=== PATIENT | male | born 1940 | race Caucasian/White ===

== ENCOUNTER → 2017-04-16 | Outpatient (CLI) | payer MEDICARE ==
[~2017-04-16] MED LIST: REGADENOSON 0.4 MG/5 ML SYRINGE IV ONE
--- NOTE | 2017-04-16 11:43 | NM ---
EXAMINATION TYPE: NM stress lexiscan cardiolite DATE OF EXAM: 04/16/2017 COMPARISON: NONE HISTORY: Precordial chest pain and abnormal EKG TECHNIQUE: After the intravenous administration of 10.6 mCi Tc 99m Sestamibi - Cardiolite resting SP ECT images acquired 45 minutes post injection. The patient received 0.4mg Lexiscan, 28.1 mCi Tc 99m Sestamibi - Stress images obtained [address] injection FINDINGS: Review of stress and rest SPECT images demonstrates decreased perfusion involving the inferior wall a nd cardiac apex at both rest and stress with slight improvement at the stress. No definite evidence for stress-induced ischemia. Estimated ejection fraction is 52%. No wall motion abnormalities detecte d. IMPRESSION: No scintigraphic evidence for reversible ischemia.
--- NOTE | 2017-04-17 14:13 | EST ---
TYPE OF REPORT: LEXISCAN STRESS TEST INDICATIONS: The test is being done to evaluate cardiac status. The patient has history of hypertension, diabetes and hypercholesterolemia. BASELINE HEART RATE: 54 BASELINE BLOOD PRESSURE: 129/70 MAXIMUM HEART RATE: 57 MAXIMUM BLOOD PRSSURE: 205/43 85% MPHR 100% MPHR Baseline EKG showed sinus rhythm with evidence of intraventricular conduction delay which appears to be nonspecific. Blood pressure at rest is 129/70 with pulse rate of 50. A standard dose of Lexiscan was infused. EKGs taken during and after infusion did not reveal any changes from the baseline. FINAL IMPRESSION: 1. Nondiagnostic Lexiscan stress test because of baseline and EKG abnormalities. 2. Report on nuclear images to be dictated by Radiologist. MEEKD
== END | disposition home or self-care (01) ==
LOC: RADNMMAIN 09:08
PROVIDERS: ATTEND Internal Medicine
DX: I45.5 Other specified heart block (principal)
CPT/HCPCS: 93017; 78452; A9500; J2785

== ENCOUNTER 2017-06-26 22:56 | Inpatient (IN) | payer MEDICARE ==
[2017-06-26 23:36] LABS: Anisocytosis Slight; Basophils % (A) 1 %; CH 32.3; CHCM 30.8; Eosinophils # (A) 0.3 k/uL (0-0.7); Eosinophils % (A) 6 %; HCT 26.4 % (39.0-53.0); HDW 3.13; Hypochromasia Moderate; Luc # (Auto) 0.12; Luc % (Auto) 3; Lymphocytes # (A) 0.3 k/uL (1.0-4.8); Lymphocytes % (A) 5 %; MCH 32.1 pg (25.0-35.0); MCHC 30.3 g/dL (31.0-37.0); Macrocytosis Moderate; Mean Platelet Volume 10.1; Monocytes # (A) 0.3 k/uL (0-1.0); Monocytes % (A) 7 %; Neutrophils # (A) 3.8 k/uL (1.3-7.7); Neutrophils % (A) 80 %; RBC 2.49 m/uL (4.30-5.90); RDW 17.2 % (11.5-15.5); WBC 4.8 k/uL (3.8-10.6); WBC (Perox) 4.92
[2017-06-26 23:46] LABS: Calcium 7.5 mg/dL (8.4-10.2); Potassium 4.4 mmol/L (3.5-5.1); Total Bilirubin 0.2 mg/dL (0.2-1.3)
[2017-06-26 23:49] LABS: INR 1.2 (<1.2); Partial Thromboplastin Time 26.5 sec (22.0-30.0); Prothrombin Time 12.1 sec (9.0-12.0)
--- NOTE | 2017-06-27 00:04 | XR ---
EXAMINATION TYPE: XR foot complete LT DATE OF EXAM: 06/26/2017 COMPARISON: NONE HISTORY: Open wound TECHNIQUE: 3 views FINDINGS: There is significant soft tissue swelling in the forefoot. There are plantar and Achilles c alcaneal spurs. There is vascular calcification. I see no focal bone destruction. IMPRESSION: Tissue swelling. No specific sign of osteomyelitis.
--- NOTE | 2017-06-27 00:13 | XR ---
EXAMINATION TYPE: XR knee complete LT DATE OF EXAM: 06/26/2017 COMPARISON: NONE HISTORY: Weakness and pain TECHNIQUE: 3 views FINDINGS: There is severe narrowing of the medial joint space. There is spurring of femoral and tibia l condyles. I see no fracture. There is spurring on the patella. IMPRESSION: Advanced osteoarthritis. No fracture seen.
--- NOTE | 2017-06-27 00:14 | XR ---
EXAMINATION TYPE: XR chest 1V DATE OF EXAM: 06/26/2017 COMPARISON: 07/26/2015 HISTORY: Weakness. TECHNIQUE: Single frontal view of the chest is obtained. FINDINGS: Heart is enlarged. There is mild pulmonary vascular congestion. There is no pleural effusi on. IMPRESSION: Cardiomegaly and mild congestion. Pulmonary vascularity is increased compared to last ex am and this could be mild heart failure.
[2017-06-27] MEDS ORDERED: NITROGLYCERIN OINT 1 INCH/GM PACKET TOPICAL STA (00:23)
[2017-06-27] MEDS ORDERED: VANCOMYCIN IV PER PHARMACY 1 EACH MISC MISCELLANE PRN (00:23)
[2017-06-27] MEDS ORDERED: FUROSEMIDE 10 MG/ML 4 ML VIAL IV STA (00:23)
[2017-06-27] MEDS ORDERED: ACETAMINOPHEN TAB 325 MG TAB PO PRN (00:27)
[2017-06-27] MEDS ORDERED: ONDANSETRON 4 MG/2 ML VIAL IVP PRN (00:27)
[2017-06-27] MEDS ORDERED: NALOXONE 0.4 MG/ML 1 ML VIAL IV PRN (00:27)
--- NOTE | 2017-06-27 00:27 | ED ---
Extremity Problem HPI - General Chief complaint: Extremity Problem,Nontraumatic Stated complaint: weakness Time Seen by Provider: 06/26/17 23:05 Source: patient, RN notes reviewed Mode of arrival: EMS Limitations: no limitations - History of Present Illness Initial comments: 76-year-old male presents emergency department via EMS chief complaint fall. Patient states the more frequent falls recently. Patient states that he also has a wound on his left heel which has been new over the last week or so. Family states they have been wrapping it but states been progressing and they noticed some surrounding redness. Patient is a diabetic. Patient has known renal disease and states that he has not had dialysis for over one year he does admit to worsening kidney function states she's been resistant of dialysis. Patient states his primary care physician has advised him that he needs dialysis again. Patient denies fever, chills. Patient states that his left knee gave out on him tonight causing him to fall. He complains of mild left knee pain. He does have some bruising on his back and right shoulder which is from a previous fall. Patient states that is not more short of breath than usual though he appears to be short of breath at this time. Patient does have [place] at home but he has not been wearing this. - Related Data Home Medications Medication Instructions Recorded Confirmed Calcium Acetate [PhosLo] 222 mg PO DAILY 06/24/14 06/10/17 Colchicine [Colcrys] 0.6 mg PO DAILY PRN 06/24/14 06/10/17 DULoxetine HCL [Cymbalta] 30 mg PO DAILY 06/24/14 06/10/17 HYDROcodone/APAP 7.5-325MG [[place] 7.5 mg PO BID 06/24/14 06/10/17 7.5-325] Labetalol [Trandate] 200 mg PO BID 06/24/14 06/10/17 Levothyroxine Sodium [Synthroid] 0.25 mcg PO DAILY 06/24/14 06/10/17 Allopurinol [Zyloprim] 100 mg PO BID 11/22/14 06/10/17 Atorvastatin [Lipitor] 40 mg PO HS 07/30/15 06/10/17 Bumetanide [BUMEX] 2 mg PO BID 07/30/15 06/10/17 Pramipexole [Mirapex] 0.25 mg PO DAILY 07/30/15 06/10/17 Ergocalciferol [Vitamin D2] 50,000 unit PO Q7D 12/30/15 06/10/17 Aspirin [Aspirin EC] 500 mg PO DAILY PRN 04/29/17 06/10/17 Calcium Acetate [Phoslo] 667 mg PO TID 04/29/17 06/10/17 Ascorbic Acid [Vitamin C] 500 mg PO DAILY 05/13/17 06/10/17 Zinc 50 mg PO DAILY 05/13/17 06/10/17 Previous Rx's Medication Instructions Recorded amLODIPine [Norvasc] 10 mg PO DAILY #30 tab 06/28/14 Allergies Allergy/AdvReac Type Severity Reaction Status Date / Time ciprofloxacin [From Cipro] Allergy Rash/Hives Verified 06/24/17 13:07 ciprofloxacin HCl Allergy Rash/Hives Verified 06/24/17 13:07 [From Cipro] Penicillins Allergy Unknown Verified 06/24/17 13:07 sulfamethoxazole Allergy Rash/Hives Verified 06/24/17 13:07 [From Bactrim] trimethoprim [From Bactrim] Allergy Rash/Hives Verified 06/24/17 13:07 Review of Systems ROS Statement: Those systems with pertinent positive or pertinent negative responses have been documented in the HPI. ROS Other: All systems not noted in ROS Statement are negative. Past Medical History Past Medical History: COPD, Diabetes Mellitus, Dialysis, Hyperlipidemia, Hypertension, Osteoarthritis (OA), Renal Disease, Sleep Apnea/CPAP/BIPAP, Thyroid Disorder Additional Past Medical History / Comment(s): end-stage renal disease, morbid obesity with BMI of 47 , gout , prior history of diabetic [facility] Nye, hypertension, hypertensivecardio vascular disease, hypothyroidism, diabetes mellitus type 2, COPD, hyperlipidemia, BPH, osteoarthritis. History of Any Multi-Drug Resistant Organisms: None Reported Past Surgical History: Heart Catheterization, Hernia Repair, Joint Replacement Additional Past Surgical History / Comment(s): Dialysis fistula and right forearm, eye surgery, umbilical and hiatal hernia repair, right ankle repair, CAPD catheter placement , EGD and colonoscopy, multiple foot surgeries. Past Anesthesia/Blood Transfusion Reactions: No Reported Reaction Past Psychological History: No Psychological Hx Reported Smoking Status: Never smoker - Past Family History Mother Family Medical History: CVA/TIA Father Family Medical History: Congestive Heart Failure (CHF) Brother(s) Family Medical History: No Reported History General Exam Limitations: no limitations General appearance: alert, in no apparent distress, obese Head exam: Present: atraumatic, normocephalic, normal inspection Neck exam: Present: normal inspection. Absent: tenderness, meningismus, lymphadenopathy Respiratory exam: Present: rales. Absent: normal lung sounds bilaterally, respiratory distress, wheezes, rhonchi, stridor Cardiovascular Exam: Present: regular rate, normal rhythm, normal heart sounds. Absent: systolic murmur, diastolic murmur, rubs, gallop, clicks Extremities exam: Present: other (Edematous legs noted with faint pedal pulses equal bilaterally, left knee pain with range of motion no tenderness to posterior medial lateral but there is mild tenderness to the anterior surface. Left heel there is an area of sloughing of the skin with moderate surrounding erythema and small area of deep tissue noted there is a sore noted to the right foot on the third digit along with some deformities of the digits noted) Back exam: Present: full ROM, tenderness (Mild tenderness low back). Absent: normal inspection (Ecchymosis noted the right shoulder region, upper back region ) Neurological exam: Present: alert, oriented X3, CN II-XII intact, reflexes normal. Absent: motor sensory deficit Course Vital Signs 06/26/17 22:58 Temperature 100.0 F H Pulse Rate 73 Respiratory 20 Rate Blood Pressure 133/60 O2 Sat by Pulse 91 L Oximetry Medical Decision Making - Lab Data Result diagrams: 06/26/17 23:07 06/26/17 23:07 Lab Results 06/26/17 06/26/17 06/26/17 Range/Units 23:07 23:07 23:07 WBC 4.8 (3.8-10.6) k/uL RBC 2.49 L (4.30-5.90) m/uL Hgb 8.0 L (13.0-17.5) gm/dL Hct 26.4 L (39.0-53.0) % MCV 106.0 H (80.0-100.0) fL MCH 32.1 (25.0-35.0) pg MCHC 30.3 L (31.0-37.0) g/dL RDW 17.2 H (11.5-15.5) % Plt Count 142 L (150-450) k/uL Neutrophils % 80 % Lymphocytes % 5 % Monocytes % 7 % Eosinophils % 6 % Basophils % 1 % Neutrophils # 3.8 (1.3-7.7) k/uL Lymphocytes # 0.3 L (1.0-4.8) k/uL Monocytes # 0.3 (0-1.0) k/uL Eosinophils # 0.3 (0-0.7) k/uL Basophils # 0.0 (0-0.2) k/uL Hypochromasia Moderate Anisocytosis Slight Macrocytosis Moderate PT (9.0-12.0) sec INR (<1.2) APTT (22.0-30.0) sec Sodium 141 (137-145) mmol/L Potassium 4.4 (3.5-5.1) mmol/L Chloride 112 H (98-107) mmol/L Carbon Dioxide 11 L (22-30) mmol/L Anion Gap 18 mmol/L BUN 103 H* (9-20) mg/dL Creatinine 6.70 H* (0.66-1.25) mg/dL Est GFR (MDRD) Af Amer 10 (>60 ml/min/1.73 sqM) Est GFR (MDRD) Non-Af 8 (>60 ml/min/1.73 sqM) Glucose 167 H (74-99) mg/dL Plasma Lactic Acid Levi 1.3 (0.7-2.0) mmol/L Calcium 7.5 L (8.4-10.2) mg/dL Total Bilirubin 0.2 (0.2-1.3) mg/dL AST 18 (17-59) U/L ALT 36 (21-72) U/L Alkaline Phosphatase 88 (38-126) U/L NT-Pro-B Natriuret Pep pg/mL Total Protein 6.0 L (6.3-8.2) g/dL Albumin 3.3 L (3.5-5.0) g/dL 06/26/17 06/26/17 Range/Units 23:07 23:07 WBC (3.8-10.6) k/uL RBC (4.30-5.90) m/uL Hgb (13.0-17.5) gm/dL Hct (39.0-53.0) % MCV (80.0-100.0) fL MCH (25.0-35.0) pg MCHC (31.0-37.0) g/dL RDW (11.5-15.5) % Plt Count (150-450) k/uL Neutrophils % % Lymphocytes % % Monocytes % % Eosinophils % % Basophils % % Neutrophils # (1.3-7.7) k/uL Lymphocytes # (1.0-4.8) k/uL Monocytes # (0-1.0) k/uL Eosinophils # (0-0.7) k/uL Basophils # (0-0.2) k/uL Hypochromasia Anisocytosis Macrocytosis PT 12.1 H (9.0-12.0) sec INR 1.2 H (<1.2) APTT 26.5 (22.0-30.0) sec Sodium (137-145) mmol/L Potassium (3.5-5.1) mmol/L Chloride (98-107) mmol/L Carbon Dioxide (22-30) mmol/L Anion Gap mmol/L BUN (9-20) mg/dL Creatinine (0.66-1.25) mg/dL Est GFR (MDRD) Af Amer (>60 ml/min/1.73 sqM) Est GFR (MDRD) Non-Af (>60 ml/min/1.73 sqM) Glucose (74-99) mg/dL Plasma Lactic Acid Levi (0.7-2.0) mmol/L Calcium (8.4-10.2) mg/dL Total Bilirubin (0.2-1.3) mg/dL AST (17-59) U/L ALT (21-72) U/L Alkaline Phosphatase (38-126) U/L NT-Pro-B Natriuret Pep 53187 pg/mL Total Protein (6.3-8.2) g/dL Albumin (3.5-5.0) g/dL Disposition Clinical Impression: Acute exacerbation of CHF (congestive heart failure), Diabetic foot ulcer, Chronic renal failure Disposition: ADMITTED IP TO THIS [facility] Condition: Fair Referrals: Anup Chirinos MD [Primary Care Provider] - 1-2 days
[2017-06-27] MEDS ORDERED: VANCOMYCIN 2,250 MG in SODIUM CHLORIDE 0.9% 500 ML IVPB STA (00:28)
[2017-06-27 06:13] LABS: Glucose,Whole Blood 170 mg/dL (75-99)
[2017-06-27] MEDS: INSULIN LISPRO (humaLOG) 300 UNIT/3 ML VIAL SQ SCH ×4 (06:27→21:05)
[2017-06-27] MEDS ORDERED: LEVOTHYROXINE 112 MCG TAB PO SCH (09:00)
[2017-06-27] MEDS ORDERED: N PO SCH (09:00)
[2017-06-27] MEDS: ALLOPURINOL 100 MG TAB PO SCH ×2 (10:55→20:41)
[2017-06-27] MEDS: amLODIPine 10 MG TAB PO SCH (10:55)
[2017-06-27] MEDS: LABETALOL 200 MG TAB PO SCH ×2 (10:56→20:41)
[2017-06-27] MEDS: ASCORBIC ACID 500 MG TAB PO SCH (10:56)
[2017-06-27] MEDS: DULoxetine HCL 30 MG CAPSULE.DR PO SCH (10:56)
[2017-06-27] MEDS: PRAMIPEXOLE 0.25 MG TAB PO SCH (10:57)
[2017-06-27] MEDS: HYDROcodone/APAP 7.5-325MG 1 EACH TAB PO SCH ×2 (11:09→20:41)
[2017-06-27] MEDS: FUROSEMIDE 10 MG/ML 10 ML VIAL IV SCH ×3 (11:45→23:30)
[2017-06-27 11:48] LABS: Glucose,Whole Blood 205 mg/dL (75-99)
--- NOTE | 2017-06-27 11:51 | P.NPCON ---
History of Present Illness - Reason for Consult Consult date: 06/27/17 chronic renal failure, end stage renal disease - Chief Complaint Falls and worsening shortness of breath - History of Present Illness Mr. Handley is a 76-year-old white gentleman coming to the hospital with recurrent falls and worsening shortness of breath. He follows with Dr. Devi in the CKD clinic. He has C daily for secondary to diabetic nephropathy was on dialysis, initially [facility] for a year and then [facility] for 3 years. He was taken off dialysis since September 2014 and since then doing pretty good without dialysis. Creatinine history, 2.73 MG per DL in October 2014, 2.93 in December 2014. Creatinine of 4.55 in December 2016. Lab work from March 2017 serum creatinine of 5.74 MG per DL. Currently is CKD 5. He was offered dialysis but he declined. He comes into the hospital and creatinine today 6.7 MG per DL with albumin of 108. His bicarb is 11. Potassium is within normal limits he does make good amount of urine. He takes Bumex 3 mg twice a day. He has mild uremic symptoms with decreased appetite, some taste changes. No overt confusion. No recent contrast studies. In the ER he was given Lasix his breathing improved. Still short of breath while talking but able to lie flat. Review of Systems Denies any chest pain shortness of breath palpitations No joint pains calf tenderness No dizziness lightheadedness No dysuria or hematuria Past Medical History Past Medical History: COPD, Diabetes Mellitus, Dialysis, Hyperlipidemia, Hypertension, Osteoarthritis (OA), Renal Disease, Sleep Apnea/CPAP/BIPAP, Thyroid Disorder Additional Past Medical History / Comment(s): end-stage renal disease, morbid obesity with BMI of 47 , gout , prior history of diabetic [facility] under [facility] Nye, hypertension, hypertensivecardio vascular disease, hypothyroidism, diabetes mellitus type 2, COPD, hyperlipidemia, BPH, osteoarthritis. History of Any Multi-Drug Resistant Organisms: None Reported Past Surgical History: Heart Catheterization, Hernia Repair, Joint Replacement Additional Past Surgical History / Comment(s): Dialysis fistula and right forearm x 3, eye surgery, umbilical and hiatal hernia repair, right ankle repair , CAPD catheter placement , EGD and colonoscopy, multiple foot surgeries. Past Anesthesia/Blood Transfusion Reactions: No Reported Reaction Past Psychological History: No Psychological Hx Reported Smoking Status: Never smoker Past Alcohol Use History: None Reported Additional Past Alcohol Use History / Comment(s): patient is a lifelong nonsmoker. He denies any marijuana, medical marijuana street drug use. Patient lives at home with his . He is a retired teacher. Past Drug Use History: None Reported - Past Family History Mother Family Medical History: CVA/TIA Father Family Medical History: Congestive Heart Failure (CHF) Brother(s) Family Medical History: No Reported History Medications and Allergies Home Medications Medication Instructions Recorded Confirmed Type Colchicine [Colcrys] 0.6 mg PO DAILY PRN 06/24/14 06/27/17 History DULoxetine HCL [Cymbalta] 30 mg PO DAILY 06/24/14 06/27/17 History Labetalol [Trandate] 400 mg PO BID 06/24/14 06/27/17 History amLODIPine [Norvasc] 10 mg PO DAILY #30 tab 06/28/14 06/27/17 Rx Allopurinol [Zyloprim] 100 mg PO BID 11/22/14 06/27/17 History Atorvastatin [Lipitor] 40 mg PO HS 07/30/15 06/27/17 History Bumetanide [BUMEX] 4 mg PO BID 07/30/15 06/27/17 History Pramipexole [Mirapex] 0.25 mg PO DAILY 07/30/15 06/27/17 History Ergocalciferol [Vitamin D2] 50,000 unit PO MO 12/30/15 06/27/17 History Aspirin [Aspirin EC] 500 mg PO DAILY PRN 04/29/17 06/27/17 History Ascorbic Acid [Vitamin C] 500 mg PO DAILY 05/13/17 06/27/17 History Levothyroxine Sodium [Synthroid] 50 mcg PO DAILY 06/27/17 06/27/17 History Levothyroxine Sodium [Synthroid] 200 mcg PO DAILY 06/27/17 06/27/17 History Allergies Allergy/AdvReac Type Severity Reaction Status Date / Time ciprofloxacin [From Cipro] Allergy Rash/Hives Verified 06/27/17 10:22 ciprofloxacin HCl Allergy Rash/Hives Verified 06/27/17 10:22 [From Cipro] Penicillins Allergy Rash/Hives Verified 06/27/17 10:22 sulfamethoxazole Allergy Rash/Hives Verified 06/27/17 10:22 [From Bactrim] trimethoprim [From Bactrim] Allergy Rash/Hives Verified 06/27/17 10:22 Physical Exam Vitals: Vital Signs Temp Pulse Pulse Resp BP BP Pulse Ox 06/27/17 03:11 97.6 F 70 20 129/61 94 L 06/27/17 01:10 EDT 98.3 F 06/27/17 00:41 76 22 150/65 97 06/26/17 22:58 100.0 F H 73 20 133/60 91 L Intake and Output 06/26/17 06/27/17 06/27/17 23:59 06:59 14:59 Intake Total 600 Balance 600 Intake: IV Vancomycin 2,250 mg In Sodium Chloride 0.9% 500 ml @ 167 mls/hr IVPB ONCE STA Rx#:[id number] Amount of Fluid Infused ( ml) Oral 600 Other: Voiding Method Weight Lying in bed no acute distress S1-S2 heard Decreased breath sounds in the bases Bilateral lower extremity edema Right forearm fistula aVF which is functional. Results Impression: #1 CKD 5 secondary to diabetic nephropathy. With mild uremic symptoms and volume overload. #2 hypervolemia with worsening shortness of breath secondary to fluid retention. #3 metabolic acidosis secondary to #1. #4 anemia with CKD #5 history of congestive heart failure. Recommendations: #1 start Lasix 80 mg IV 3 times a day for volume-controlled. #2 plan hemodialysis for tomorrow via right upper arm aVF, 2 hours treatment. #3 add by mouth sodium bicarbonate for metabolic acidosis. #4 check serum phosphorus and PTH and iron profile with a.m. labs. Very much for this consultation will follow along while he is in the hospital. - Lab Results Most recent lab results Calcium 7.5 mg/dL (8.4-10.2) L 06/26/17 23:07 06/26/17 23:07 06/26/17 23:07
--- NOTE | 2017-06-27 12:25 | P.CRDCN ---
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 The patient stated that he was in his usual state of health until about a week ago when he started experiencing frequent falls. He fell 5 times within a week. Did not lose his consciousness. Did not have any symptoms of dizziness or lightheadedness and around episodes, heart racing or fluttering, or any chest pain or chest discomfort. At the same time he started noticing progressive exertional dyspnea without orthopnea and without PND. Also he noticed severe bilateral lower extremities edema. The patient stated that he was compliant with all of his medications as well as with his diet. Does not recall having any recent history of upper respiratory infection or pneumonia or so. Clinically the patient does not look in any respiratory distress. He is morbidly obese. He does have severe bilateral lower extremities pitting edema associated with chronic skin changes and he does have bilateral crackles on physical examination. The chest x-ray showed cardiomegaly associated with congestive heart failure. The BNP came in to be severe lead alleviated. The hemoglobin came in to be around 8. The creatinine is 6 and a GFR is less than 10. The patient was seen and evaluated by the nephrology service who started the patient on IV Lasix and scheduled the patient to undergo hemodialysis beginning tomorrow. Past Medical History Past Medical History: COPD, Diabetes Mellitus, Dialysis, Hyperlipidemia, Hypertension, Osteoarthritis (OA), Renal Disease, Sleep Apnea/CPAP/BIPAP, Thyroid Disorder Additional Past Medical History / Comment(s): end-stage renal disease, morbid obesity with BMI of 47 , gout , prior history of diabetic wound ulcers [facility] under Dr. Nye, hypertension, hypertensivecardio vascular disease, hypothyroidism, diabetes mellitus type 2, COPD, hyperlipidemia, BPH, osteoarthritis. History of Any Multi-Drug Resistant Organisms: None Reported Past Surgical History: Heart Catheterization, Hernia Repair, Joint Replacement Additional Past Surgical History / Comment(s): Dialysis fistula and right forearm x 3, eye surgery, umbilical and hiatal hernia repair, right ankle repair , CAPD catheter placement , EGD and colonoscopy, multiple foot surgeries. Past Anesthesia/Blood Transfusion Reactions: No Reported Reaction Past Psychological History: No Psychological Hx Reported Smoking Status: Never smoker Past Alcohol Use History: None Reported Additional Past Alcohol Use History / Comment(s): patient is a lifelong nonsmoker. He denies any marijuana, medical marijuana street drug use. Patient lives at home with his . He is a retired teacher. Past Drug Use History: None Reported - Past Family History Mother Family Medical History: CVA/TIA Father Family Medical History: Congestive Heart Failure (CHF) Brother(s) Family Medical History: No Reported History Medications and Allergies Home Medications Medication Instructions Recorded Confirmed Type Colchicine [Colcrys] 0.6 mg PO DAILY PRN 06/24/14 06/27/17 History DULoxetine HCL [Cymbalta] 30 mg PO DAILY 06/24/14 06/27/17 History Labetalol [Trandate] 400 mg PO BID 06/24/14 06/27/17 History amLODIPine [Norvasc] 10 mg PO DAILY #30 tab 06/28/14 06/27/17 Rx Allopurinol [Zyloprim] 100 mg PO BID 11/22/14 06/27/17 History Atorvastatin [Lipitor] 40 mg PO HS 07/30/15 06/27/17 History Bumetanide [BUMEX] 4 mg PO BID 07/30/15 06/27/17 History Pramipexole [Mirapex] 0.25 mg PO DAILY 07/30/15 06/27/17 History Ergocalciferol [Vitamin D2] 50,000 unit PO MO 12/30/15 06/27/17 History Aspirin [Aspirin EC] 500 mg PO DAILY PRN 04/29/17 06/27/17 History Ascorbic Acid [Vitamin C] 500 mg PO DAILY 05/13/17 06/27/17 History Levothyroxine Sodium [Synthroid] 50 mcg PO DAILY 06/27/17 06/27/17 History Levothyroxine Sodium [Synthroid] 200 mcg PO DAILY 06/27/17 06/27/17 History Allergies Allergy/AdvReac Type Severity Reaction Status Date / Time ciprofloxacin [From Cipro] Allergy Rash/Hives Verified 06/27/17 10:22 ciprofloxacin HCl Allergy Rash/Hives Verified 06/27/17 10:22 [From Cipro] Penicillins Allergy Rash/Hives Verified 06/27/17 10:22 sulfamethoxazole Allergy Rash/Hives Verified 06/27/17 10:22 [From Bactrim] trimethoprim [From Bactrim] Allergy Rash/Hives Verified 06/27/17 10:22 Physical Exam Vitals: Vital Signs Temp Pulse Pulse Resp BP BP Pulse Ox 06/27/17 03:11 97.6 F 70 20 129/61 94 L 06/27/17 01:10 EDT 98.3 F 06/27/17 00:41 76 22 150/65 97 06/26/17 22:58 100.0 F H 73 20 133/60 91 L Intake and Output 06/26/17 06/27/17 06/27/17 23:59 06:59 14:59 Intake Total 600 Balance 600 Intake: IV Vancomycin 2,250 mg In Sodium Chloride 0.9% 500 ml @ 167 mls/hr IVPB ONCE STA Rx#:[id number] Amount of Fluid Infused ( ml) Oral 600 Other: Voiding Method Weight - Constitutional General appearance: no acute distress - Respiratory Respiratory: bilateral: rales - Cardiovascular Rhythm: regular Heart sounds: normal: S1, S2 Results 06/26/17 23:07 06/26/17 23:07 Cardiac Enzymes 06/26/17 Range/Units 23:07 AST 18 (17-59) U/L Coagulation 06/26/17 Range/Units 23:07 PT 12.1 H (9.0-12.0) sec APTT 26.5 (22.0-30.0) sec CBC 06/26/17 Range/Units 23:07 WBC 4.8 (3.8-10.6) k/uL RBC 2.49 L (4.30-5.90) m/uL Hgb 8.0 L (13.0-17.5) gm/dL Hct 26.4 L (39.0-53.0) % Plt Count 142 L (150-450) k/uL Comprehensive Metabolic Panel 06/26/17 Range/Units 23:07 Sodium 141 (137-145) mmol/L Potassium 4.4 (3.5-5.1) mmol/L Chloride 112 H (98-107) mmol/L Carbon Dioxide 11 L (22-30) mmol/L BUN 103 H* (9-20) mg/dL Creatinine 6.70 H* (0.66-1.25) mg/dL Glucose 167 H (74-99) mg/dL Calcium 7.5 L (8.4-10.2) mg/dL AST 18 (17-59) U/L ALT 36 (21-72) U/L Alkaline Phosphatase 88 (38-126) U/L Total Protein 6.0 L (6.3-8.2) g/dL Albumin 3.3 L (3.5-5.0) g/dL Current Medications Generic Name Dose Route Start Last Admin Trade Name Freq PRN Reason Stop Dose Admin Acetaminophen 650 mg 06/27/17 00:27 Tylenol Tab PO Q6HR PRN Mild Pain or Fever > 100.5 Hydrocodone Bitart/Acetaminophen 7.5 each 06/27/17 09:00 06/27/17 11:09 [place] 7.5-325 PO 7.5 each BID TASHI Administration Allopurinol 100 mg 06/27/17 09:00 06/27/17 10:55 Zyloprim PO 100 mg BID TASHI Administration Amlodipine Besylate 10 mg 06/27/17 09:00 06/27/17 10:55 Norvasc PO 10 mg DAILY TASHI Administration Ascorbic Acid 500 mg 06/27/17 09:00 06/27/17 10:56 Vitamin C PO 500 mg DAILY TASHI Administration Atorvastatin Calcium 40 mg 06/27/17 21:00 Lipitor PO HS [facility] Ceftriaxone Sodium 1,000 mg 06/27/17 10:30 Rocephin IVP Q24HR [facility] Duloxetine HCl 30 mg 06/27/17 09:00 06/27/17 10:56 Cymbalta PO 30 mg DAILY TASHI Administration Furosemide 80 mg 06/27/17 11:45 Lasix IV Q8HR [facility] Insulin Human Lispro 0 unit 06/27/17 07:30 06/27/17 12:17 Humalog SQ 6 unit ACHS [facility] Administration Protocol Labetalol HCl 200 mg 06/27/17 09:00 06/27/17 10:56 Trandate PO 200 mg BID TASHI Administration Levothyroxine Sodium 0.25 mcg 06/27/17 09:00 Synthroid PO DAILY [facility] Miscellaneous Information 1 each 06/27/17 00:23 Pharmacy To Dose Iv Vancomycin MISCELLANE DIRECTED PRN DOSE BY LEVEL Naloxone HCl 0.2 mg 06/27/17 00:27 Narcan IV Q2M PRN Opioid Reversal Ondansetron HCl 4 mg 06/27/17 00:27 Zofran IVP Q8HR PRN Nausea And Vomiting Pramipexole Dihydrochloride 0.25 mg 06/27/17 09:00 06/27/17 10:57 Mirapex PO 0.25 mg DAILY TASHI Administration Sodium Bicarbonate 650 mg 06/27/17 11:45 Sodium Bicarbonate Tab PO TID TASHI Intake and Output 06/26/17 06/27/17 06/27/17 23:59 06:59 14:59 Intake Total 600 Balance 600 Intake: IV Vancomycin 2,250 mg In Sodium Chloride 0.9% 500 ml @ 167 mls/hr IVPB ONCE STA Rx#:[id number] Amount of Fluid Infused ( ml) Oral 600 Other: Voiding Method Weight 06/26/17 23:07 06/26/17 23:07 Assessment and Plan Assessment: This is a pleasant 76-year-old gentleman with obesity, diabetes, hypertension, dyslipidemia and end-stage renal disease presented to the hospital with volume overload and evidence of congestive heart failure and known if it's due to systolic or diastolic dysfunction at this point of time. The patient was already started on IV Lasix. He scheduled to have hemodialysis tomorrow. I will follow-up with the echocardiogram which was ordered. Rule out acute coronary event as an etiology for his heart failure by obtaining serial cardiac enzymes and obtain 12 please EKG. Continue monitor the weight as well as input and output. Thank you for allowing us but spitting his care and we'll continue following up with the patient.
--- NOTE | 2017-06-27 13:33 | P.HPIM ---
History of Present Illness H&P Date: 06/27/17 Chief Complaint: fall This is a 73-year-old gentleman patient of Dr. Chirinos a previous medical history significant for chronic multiple medical problems including hypertension and hypertensive cardiovascular disease, diabetes mellitus type 2 was on insulin pump ( stopped 7 weeks ago ) , diabetic polyneuropathy, diabetic retinopathy, end stage renal disease was on hemodialysis status post right forearm AV fistula, followed by peritoneal dialysis with a CAPD at home which he stopped doing to 1 year ago, history of hyperlipidemia, history of super morbid obesity with obstructive sleep apnea as well as obesity hypoventilation syndrome, patient was last hospitalized in 2013 for a colitis and peritonitis requiring antibiotics. Patient was doing well until one week ago when he started having frequent falls. Patient fell 5 times in the past week. According to the son at bedside , patient stopped dialysis 1 year ago as he lost hope in recovery. According to the patient, he was seen by a ssis ssrs developer who recommended patient going off dialysis for 2 weeks but he did not see the ssis ssrs developer as he moved from [place]. Since then patient has been adamant about not starting dialysis and continuing Lasix and Bumex as outpatient. Patient was initially on hemodialysis but then went on to peritoneal dialysis for 3 years before going off dialysis in September 2014. Patient is making good urine output on the diuretics. Patient had multiple falls during the past week which appears to be mechanical as patient states that he did not lose consciousness. Patient denies dizziness, seizures or balance abnormality. He states he feels heavy in his legs and his left knee just gave away. He also has noticed worsening shortness of breath on exertion with worsening lower extremity edema and nonhealing wound on his left heel since Wednesday. Patient states he did not notice the wound before. He came to the hospital with a creatinine of 6.7(his last outpatient creatinine was 4.55 in December 2016) and a BUN 108. Patient's bicarb was 11, potassium was within normal limits. Hemoglobin 8 and BNP 34, 800. X-ray of the left knee suggested advanced osteoarthritis. X-ray of left foot suggested significant soft tissue swelling in the forefoot but no focal destruction suggesting of osteo-mellitus. Chest x-ray suggestive of cardiomegaly with pulmonary vascularity suggestive of mild heart failure. Echo Was ordered. Review of Systems Constitutional: Reports anorexia, Reports fatigue, Reports weakness, Denies chills, Denies fever, Denies sweats Eyes: bilateral blurred vision, bilateral discharge, bilateral dry eye, bilateral itching Ears: bilateral: decreased hearing, earache, tinnitus Ears, nose, mouth and throat: Denies ant. neck pain, Denies bleeding gums, Denies dysphagia, Denies headache, Denies neck lump, Denies nose pain, Denies odynophagia, Denies post-nasal drip, Denies sinus pressure, Denies sore throat Cardiovascular: Reports decreased exercise tolerance, Reports dyspnea on exertion, Reports edema, Reports leg edema, Reports shortness of breath, Denies chest pain, Denies claudication, Denies irregular heart beat, Denies lightheadedness, Denies orthopnea, Denies paroxysmal nocturnal dyspnea Respiratory: Reports sleep apnea, Denies congestion, Denies cough, Denies cough with sputum, Denies home oxygen Gastrointestinal: Denies abdominal pain, Denies bloating, Denies BRBPR, Denies change in bowel habits, Denies hematemesis, Denies hematochezia, Denies loss of appetite, Denies nausea, Denies vomiting Genitourinary: Denies dysuria, Denies nocturia, Denies polyuria, Denies urinary frequency, Denies urinary hesitancy, Denies urinary retention Musculoskeletal: Reports frequent falls, Reports gait dysfunction, Reports limitation of motion, Reports low back pain, Reports muscle weakness, Reports myalgias, Denies arm numbness/tingling, Denies leg numbness/tingling, Denies neck pain, Denies neck stiffness, Denies redness of joints, Denies shooting arm pain, Denies shooting leg pain Musculoskeletal: left: knee swelling, bilateral: ankle pain, ankle swelling, foot pain, foot swelling, absent: shoulder swelling, wrist pain, wrist stiffness , wrist swelling Integumentary: Reports color changes, Reports foot/leg ulcers, Reports unusual bruising, Reports wounds Neurological: Reports balance difficulties, Reports burning pain, Reports gait dysfunction, Reports tingling, Reports weakness, Denies change in mentation, Denies change in speech, Denies confusion, Denies double vision, Denies lack of coordination, Denies motor disturbance, Denies numbness, Denies paralysis, Denies paresthesias, Denies seizures, Denies tremors, Denies vertigo, Denies visual changes Psychiatric: Reports depression, Denies change in sleep habits, Denies difficulty concentrating, Denies disorientation, Denies hopelessness, Denies insomnia Endocrine: Reports high blood sugars, Denies excessive sweating, Denies excessive thirst, Denies fatigue, Denies heat intolerance, Denies recent glucocorticoid use Past Medical History Past Medical History: COPD, Diabetes Mellitus, Dialysis, Hyperlipidemia, Hypertension, Osteoarthritis (OA), Renal Disease, Sleep Apnea/CPAP/BIPAP, Thyroid Disorder Additional Past Medical History / Comment(s): end-stage renal disease, morbid obesity with BMI of 47 , gout , prior history of diabetic wound [facility] under [facility]. Nye, hypertension, hypertensivecardio vascular disease, hypothyroidism, diabetes mellitus type 2, COPD, hyperlipidemia, BPH, osteoarthritis. History of Any Multi-Drug Resistant Organisms: None Reported Past Surgical History: Heart Catheterization, Hernia Repair, Joint Replacement Additional Past Surgical History / Comment(s): Dialysis fistula and right forearm x 3, eye surgery, umbilical and hiatal hernia repair, right ankle repair , CAPD catheter placement , EGD and colonoscopy, multiple foot surgeries. Past Anesthesia/Blood Transfusion Reactions: No Reported Reaction Past Psychological History: No Psychological Hx Reported Smoking Status: Never smoker Past Alcohol Use History: None Reported Additional Past Alcohol Use History / Comment(s): patient is a lifelong nonsmoker. He denies any marijuana, medical marijuana street drug use. Patient lives at home with his . He is a retired teacher. Past Drug Use History: None Reported - Past Family History Mother Family Medical History: CVA/TIA Father Family Medical History: Congestive Heart Failure (CHF) Brother(s) Family Medical History: No Reported History Medications and Allergies Home Medications Medication Instructions Recorded Confirmed Type Colchicine [Colcrys] 0.6 mg PO DAILY PRN 06/24/14 06/27/17 History DULoxetine HCL [Cymbalta] 30 mg PO DAILY 06/24/14 06/27/17 History Labetalol [Trandate] 400 mg PO BID 06/24/14 06/27/17 History amLODIPine [Norvasc] 10 mg PO DAILY #30 tab 06/28/14 06/27/17 Rx Allopurinol [Zyloprim] 100 mg PO BID 11/22/14 06/27/17 History Atorvastatin [Lipitor] 40 mg PO HS 07/30/15 06/27/17 History Bumetanide [BUMEX] 4 mg PO BID 07/30/15 06/27/17 History Pramipexole [Mirapex] 0.25 mg PO DAILY 07/30/15 06/27/17 History Ergocalciferol [Vitamin D2] 50,000 unit PO MO 12/30/15 06/27/17 History Aspirin [Aspirin EC] 500 mg PO DAILY PRN 04/29/17 06/27/17 History Ascorbic Acid [Vitamin C] 500 mg PO DAILY 05/13/17 06/27/17 History Levothyroxine Sodium [Synthroid] 50 mcg PO DAILY 06/27/17 06/27/17 History Levothyroxine Sodium [Synthroid] 200 mcg PO DAILY 06/27/17 06/27/17 History Allergies Allergy/AdvReac Type Severity Reaction Status Date / Time ciprofloxacin [From Cipro] Allergy Rash/Hives Verified 06/27/17 10:22 ciprofloxacin HCl Allergy Rash/Hives Verified 06/27/17 10:22 [From Cipro] Penicillins Allergy Rash/Hives Verified 06/27/17 10:22 sulfamethoxazole Allergy Rash/Hives Verified 06/27/17 10:22 [From Bactrim] trimethoprim [From Bactrim] Allergy Rash/Hives Verified 06/27/17 10:22 Physical Exam Vitals: Vital Signs Temp Pulse Pulse Resp BP BP Pulse Ox 06/27/17 03:11 97.6 F 70 20 129/61 94 L 06/27/17 01:10 EDT 98.3 F 06/27/17 00:41 76 22 150/65 97 06/26/17 22:58 100.0 F H 73 20 133/60 91 L Intake and Output 06/26/17 06/27/17 06/27/17 23:59 06:59 14:59 Intake Total 600 Balance 600 Intake: IV Vancomycin 2,250 mg In Sodium Chloride 0.9% 500 ml @ 167 mls/hr IVPB ONCE STA Rx#:[id number] Amount of Fluid Infused ( ml) Oral 600 Other: Voiding Method Weight - Constitutional General appearance: mild distress, obese - EENT Eyes: EOMI, PERRLA, no photophobia, dentition normal ENT: hearing grossly normal, no pharyngeal erythema, no tonsillar exudates Ears: bilateral: normal - Neck Neck: no lymphadenopathy, normal ROM, no rigidity Carotids: bilateral: upstroke normal Thyroid: bilateral: normal size - Respiratory Respiratory: bilateral: diminished, dullness, rales, rhonchi, negative: wheezing , prolonged expiration, prolonged inspiration - Cardiovascular Rhythm: regular Heart sounds: normal: S1, S2 Abnormal Heart Sounds: systolic murmur, no diastolic murmur, no rub systolic murmur (1) Type: holo leg Peripheral Edema: bilateral: 3+, Pitting - Gastrointestinal General gastrointestinal: distended, no hepatomegaly, normal bowel sounds, soft , no splenomegaly - Integumentary Integumentary: decreased turgor, ulcer (left heel ulcer with superficial skin sloughing, purulent drainage, surrounding erythema, not warm to touch. Chronic venous stasis bilaterally) - Neurologic Neurologic: CNII-XII intact - Musculoskeletal Musculoskeletal: generalized weakness, strength equal bilaterally - Psychiatric Psychiatric: no appropriate affect (Depressed about recent demise of a friend in dialysis ) Results CBC & Chem 7: 06/26/17 23:07 06/26/17 23:07 Labs: Abnormal Lab Results - Last 24 Hours (Table) 06/26/17 06/26/17 06/26/17 Range/Units 23:07 23:07 23:07 RBC 2.49 L (4.30-5.90) m/uL Hgb 8.0 L (13.0-17.5) gm/dL Hct 26.4 L (39.0-53.0) % MCV 106.0 H (80.0-100.0) fL MCHC 30.3 L (31.0-37.0) g/dL RDW 17.2 H (11.5-15.5) % Plt Count 142 L (150-450) k/uL Lymphocytes # 0.3 L (1.0-4.8) k/uL PT 12.1 H (9.0-12.0) sec INR 1.2 H (<1.2) Chloride 112 H (98-107) mmol/L Carbon Dioxide 11 L (22-30) mmol/L BUN 103 H* (9-20) mg/dL Creatinine 6.70 H* (0.66-1.25) mg/dL Glucose 167 H (74-99) mg/dL POC Glucose (mg/dL) (75-99) mg/dL Calcium 7.5 L (8.4-10.2) mg/dL Total Protein 6.0 L (6.3-8.2) g/dL Albumin 3.3 L (3.5-5.0) g/dL 06/27/17 06/27/17 Range/Units 06:12 11:34 RBC (4.30-5.90) m/uL Hgb (13.0-17.5) gm/dL Hct (39.0-53.0) % MCV (80.0-100.0) fL MCHC (31.0-37.0) g/dL RDW (11.5-15.5) % Plt Count (150-450) k/uL Lymphocytes # (1.0-4.8) k/uL PT (9.0-12.0) sec INR (<1.2) Chloride (98-107) mmol/L Carbon Dioxide (22-30) mmol/L BUN (9-20) mg/dL Creatinine (0.66-1.25) mg/dL Glucose (74-99) mg/dL POC Glucose (mg/dL) 170 H 205 H (75-99) mg/dL Calcium (8.4-10.2) mg/dL Total Protein (6.3-8.2) g/dL Albumin (3.5-5.0) g/dL Thrombosis Risk Factor Assmnt - DVT/VTE Prophylaxis DVT/VTE Prophylaxis: Pharmacologic Prophylaxis ordered, Mechanical Prophylaxis ordered - Choose All That Apply Any of the Below Risk Factors Present?: Yes Each Factor Represents 1 point: Abnormal pulmonary function (COPD), Heart failure (<1month), Medical pt on bed rest, Obesity (BMI >25), Swollen legs ( current) Each Risk Factor Represents 2 Points: Age 61-74 years Thrombosis Risk Factor Assessment Total Risk Factor Score: 7 Thrombosis Risk Factor Assessment Level: High Risk Assessment and Plan Plan: # volume overload likely secondary to lack of dialysis for chronic kidney disease stage V - She is scheduled for hemodialysis tomorrow, would like to switch to peritoneal dialysis when's discharge - Cartographic Designer consulted. Recommends Lasix 80 mg IV every 8 hours - PTH, iron profile ordered - Potassium within normal limits - Patient may require daily dialysis for first few days #2 acute hypoxic respiratory failure likely secondary to volume overload - BNP elevated, echo ordered to rule out congestive heart failure as chest x- ray suggestive of mild heart failure -Volume overload appears likely secondary to renal insufficiency but congestive heart failure cannot be ruled out #3 cellulitis of the left heel - Continue vancomycin per pharmacy dosing for renal insufficiency - Patient is ALLERGIC to penicillin, ciprofloxacin, sulfa medications - Foot x-ray negative for any osteomyelitis, awaiting infectious disease recommendation for further workup #4 hypertension continue Norvasc 10 mg daily with labetalol 400 mg twice daily #5 uncontrolled type 2 diabetes- patient is off insulin for the past 7 weeks, glucose between 150-170 of insulin pump, the start patient on insulin sliding scale and switch to simpler regimen with lantus and lispro on discharge - HbA1c 9.2 #6 Hypothyroidism - Continue Levothyroxine 250 mcg po daily #7 restless leg syndrome continue pramipexole 0.25 mg daily #8 metabolic acidosis likely secondary to chronic kidney disease -Continue bicarb 650 mg 3 times a day #9 gout reduce allopurinol from 100 mg twice daily to 100 mg daily colchicine held #10 depression continue duloxetine 30 mg daily #11 DVT prophylaxis with heparin 5000 mg every 12 with compression devices CODE STATUS no code Disposition- likely discharge to residential facility as patient has significant generalized debility and need physical therapy .
[2017-06-27] MEDS: SODIUM BICARBONATE TAB 650 MG TAB PO SCH ×3 (15:12→20:41)
[2017-06-27] MEDS: cefTRIAXone IN SWFI 1,000 MG/10 ML SYRINGE IVP SCH (15:16)
[2017-06-27 16:51] LABS: Glucose,Whole Blood 176 mg/dL (75-99)
--- NOTE | 2017-06-27 20:07 | P.CONS ---
History of Present Illness - Reason for Consult Consult date: 06/27/17 - Chief Complaint Weakness and falls - History of Present Illness 76-year-old male presents to the emergency center with increasing weakness and a history of recent multiple falls. The patient's son who was present is very helpful to provide some accurate details of the recent history. The patient is unable to accurately give details. However is clear that he stop dialysis over a year ago and did not want to restart it. Usually said that he stopped it about 8 weeks ago which point in time he also stopped his insulin pump. The patient's son who is an EMS worker relates that he did stop his insulin pump within the last several weeks but stopped his dialysis, which was CAPD more than a year ago. The patient has been somewhat adamant about not want to restart dialysis of any type. Over the last week the patient has had increasing weakness. EMS was called and multiple events to pick patient up from the floor. He never any significant trauma and refused to go to the ER until the current event. At this time he has evidence of significant uremia generalized weakness and some confusion. Infectious disease consult was requested given the significant new ulceration has been noted to his left heel. As the patient has had multiple falls in they're unclear how the ulcer started. The patient relates that it's not painful. He does have neuropathy and has a history of an ulcer in the past. He has a fistula in the right wrist unclear if it is adequate for hemodialysis. The son believes a PermCath was utilized for his last type of hemodialysis and then he was on CAPD until he discontinued dialysis. It is not related that he was having fevers chills or rigors at home. Just found and increasing weakness and multiple falls. The patient has multiple bruises from his falls none of them are tender. Son relates that the patient does have urinary output and they're unaware of any significant changes except of some recent incontinence. Review of Systems Is noted patient is somewhat of a poor historian but is able to relate some some details. HEENT:Denies headache or acute visual change. Denies sinus or mouth discomforts. Denies neck stiffness or pain. Denies significant oral cavity pain. Denies difficulty on swallowing. Lungs: He has significant shortness of breath with any exertion and with oxygen on does not feel short of breath at rest denies sputum production or hemoptysis Cardiovascular: He is denying chest pain. He however does have orthopnea and dyspnea on exertion. With his many falls or been no syncope or presyncope Gastrointestinal:Denies nausea, vomiting, diarrhea, constipation, hematemesis, melena, hematochezia. No no significant change of bowel habit noticed. Musculoskeletal: denies significant myalgias or arthralgias. No new joint swelling. Denies new back pain. Skin: Multiple areas of ecchymosis from his falls. New Ulceration left heel Neuro: Denies headache or visual change. He has significant weakness but no seizures Psychiatric: Family relates the patient has lost hope Endocrine: Significant fatigue and weight gain Past Medical History Past Medical History: COPD, Diabetes Mellitus, Dialysis, Hyperlipidemia, Hypertension, Osteoarthritis (OA), Renal Disease, Sleep Apnea/CPAP/BIPAP, Thyroid Disorder Additional Past Medical History / Comment(s): end-stage renal disease, morbid obesity with BMI of 47 , gout , prior history of diabetic wound ulcers [facility] under [facility]. Nye, hypertension, hypertensivecardio vascular disease, hypothyroidism, diabetes mellitus type 2, COPD, hyperlipidemia, BPH, osteoarthritis. History of Any Multi-Drug Resistant Organisms: None Reported Past Surgical History: Heart Catheterization, Hernia Repair, Joint Replacement Additional Past Surgical History / Comment(s): Dialysis fistula and right forearm x 3, eye surgery, umbilical and hiatal hernia repair, right ankle repair , CAPD catheter placement , EGD and colonoscopy, multiple foot surgeries. Past Anesthesia/Blood Transfusion Reactions: No Reported Reaction Past Psychological History: No Psychological Hx Reported Additional Psychological History / Comment(s): and care for the family home. Retired. No service. No international travel. No pets in the home. No tobacco use and no significant alcohol or recreational drug use. Multiple children are involved in helpful Smoking Status: Never smoker Past Alcohol Use History: None Reported Additional Past Alcohol Use History / Comment(s): patient is a lifelong nonsmoker. He denies any marijuana, medical marijuana street drug use. Patient lives at home with his . He is a retired teacher. Past Drug Use History: None Reported - Past Family History Mother Family Medical History: CVA/TIA Father Family Medical History: Congestive Heart Failure (CHF) Brother(s) Family Medical History: No Reported History Medications and Allergies Home Medications and Allergies Comment(s): Current Medications Acetaminophen (Tylenol Tab) 650 mg PO Q6HR PRN PRN Reason: Mild Pain or Fever > 100.5 Hydrocodone Bitart/Acetaminophen (Gordon 7.5-325) 7.5 each PO BID [facility] Last Admin: 06/27/17 11:09 Dose: 7.5 each Allopurinol (Zyloprim) 100 mg PO BID [facility] Last Admin: 06/27/17 10:55 Dose: 100 mg Amlodipine Besylate (Norvasc) 10 mg PO DAILY [facility] Last Admin: 06/27/17 10:55 Dose: 10 mg Ascorbic Acid (Vitamin C) 500 mg PO DAILY [facility] Last Admin: 06/27/17 10:56 Dose: 500 mg Atorvastatin Calcium (Lipitor) 40 mg PO HS [facility] Ceftriaxone Sodium (Rocephin) 1,000 mg IVP Q24HR [facility] Last Admin: 06/27/17 15:16 Dose: 1,000 mg Duloxetine HCl (Cymbalta) 30 mg PO DAILY [facility] Last Admin: 06/27/17 10:56 Dose: 30 mg Furosemide (Lasix) 80 mg IV Q8HR [facility] Last Admin: 06/27/17 17:54 Dose: 80 mg Heparin Sodium (Porcine) (Heparin) 5,000 unit SQ Q12HR [facility] Insulin Human Lispro (Humalog) 0 unit SQ ACHS [facility] PRN Reason: Protocol Last Admin: 06/27/17 17:55 Dose: 4 unit Labetalol HCl (Trandate) 200 mg PO BID [facility] Last Admin: 06/27/17 10:56 Dose: 200 mg Levothyroxine Sodium (Synthroid) 250 mcg PO DAILY@0630 [facility] Miscellaneous Information (Pharmacy To Dose Iv Vancomycin) 1 each MISCELLANE DIRECTED PRN PRN Reason: DOSE BY LEVEL Naloxone HCl (Narcan) 0.2 mg IV Q2M PRN PRN Reason: Opioid Reversal Ondansetron HCl (Zofran) 4 mg IVP Q8HR PRN PRN Reason: Nausea And Vomiting Pramipexole Dihydrochloride (Mirapex) 0.25 mg PO DAILY [facility] Last Admin: 06/27/17 10:57 Dose: 0.25 mg Sodium Bicarbonate (Sodium Bicarbonate Tab) 650 mg PO TID [facility] Last Admin: 06/27/17 17:54 Dose: 650 mg Home Medications Medication Instructions Recorded Confirmed Type Colchicine [Colcrys] 0.6 mg PO DAILY PRN 06/24/14 06/27/17 History DULoxetine HCL [Cymbalta] 30 mg PO DAILY 06/24/14 06/27/17 History Labetalol [Trandate] 400 mg PO BID 06/24/14 06/27/17 History amLODIPine [Norvasc] 10 mg PO DAILY #30 tab 06/28/14 06/27/17 Rx Allopurinol [Zyloprim] 100 mg PO BID 11/22/14 06/27/17 History Atorvastatin [Lipitor] 40 mg PO HS 07/30/15 06/27/17 History Bumetanide [BUMEX] 4 mg PO BID 07/30/15 06/27/17 History Pramipexole [Mirapex] 0.25 mg PO DAILY 07/30/15 06/27/17 History Ergocalciferol [Vitamin D2] 50,000 unit PO MO 12/30/15 06/27/17 History Aspirin [Aspirin EC] 500 mg PO DAILY PRN 04/29/17 06/27/17 History Ascorbic Acid [Vitamin C] 500 mg PO DAILY 05/13/17 06/27/17 History Levothyroxine Sodium [Synthroid] 50 mcg PO DAILY 06/27/17 06/27/17 History Levothyroxine Sodium [Synthroid] 200 mcg PO DAILY 06/27/17 06/27/17 History Allergies Allergy/AdvReac Type Severity Reaction Status Date / Time ciprofloxacin [From Cipro] Allergy Rash/Hives Verified 06/27/17 10:22 ciprofloxacin HCl Allergy Rash/Hives Verified 06/27/17 10:22 [From Cipro] Penicillins Allergy Rash/Hives Verified 06/27/17 10:22 sulfamethoxazole Allergy Rash/Hives Verified 06/27/17 10:22 [From Bactrim] trimethoprim [From Bactrim] Allergy Rash/Hives Verified 06/27/17 10:22 Physical Exam Vitals: Vital Signs Temp Pulse Pulse Resp BP BP BP 06/27/17 17:57 97.8 F 70 20 127/61 06/27/17 12:00 97.5 F L 68 19 129/58 06/27/17 08:00 98.7 F 68 20 132/67 06/27/17 03:11 97.6 F 70 20 129/61 06/27/17 01:10 EDT 98.3 F 06/27/17 00:41 76 22 150/65 06/26/17 22:58 100.0 F H 73 20 133/60 Pulse Ox 06/27/17 17:57 95 06/27/17 12:00 94 L 06/27/17 08:00 94 L 06/27/17 03:11 94 L 06/27/17 01:10 EDT 06/27/17 00:41 97 06/26/17 22:58 91 L Intake and Output 06/27/17 06/27/17 06/27/17 06:59 14:59 22:59 Intake Total 1540 300 Output Total 400 0 Balance 1140 300 Intake: IV 300 Vancomycin 2,250 mg In 300 Sodium Chloride 0.9% 500 ml @ 167 mls/hr IVPB ONCE STA Rx#:[id number] Amount of Fluid Infused ( ml) Oral 1240 300 Output: Urine 400 0 Other: Voiding Method Urinal Urinal # Voids 1 # Bowel Movements 0 Weight 76-year-old male who is 6 foot 2 but still has significant obesity is pleasant and cooperative but has very poor recall HEENT: Anicteric conjunctiva are pink and moist nasal mucosa grossly intact without significant lesions, there is no thrush. Neck: The neck is supple without significant lymphadenopathy or thyromegaly. Lungs: There is symmetrical air entry with basilar crackles are heard no bronchial sounds Heart: Irregular with an audible S1 and S2 without S4 no distinct murmur click or rub Abdomen: Obese Positive bowel sounds soft and nontender without palpable masses or organomegaly. There was no guarding or rebound. Extremities: The upper extremity shows the IV site is intact. There is evidence of some ecchymosis on the upper extremities. Especially to the left shoulder. The lower extremities have evidence of the extensive bilateral lower extremity edema. There is extensive ulceration to the left heel which is full- thickness with fat layer exposed no bony structures involved. Serous drainage is noted. Neuro: Awake alert oriented to person and place, poor historian, able to move upper and lower extremities, decreased sensation from ankle distally bilaterally no tenderness at the ulcer site. Results CBC & Chem 7: 06/26/17 23:07 06/26/17 23:07 Labs: Abnormal Lab Results - Last 24 Hours (Table) 06/26/17 06/26/17 06/26/17 Range/Units 23:07 23:07 23:07 RBC 2.49 L (4.30-5.90) m/uL Hgb 8.0 L (13.0-17.5) gm/dL Hct 26.4 L (39.0-53.0) % MCV 106.0 H (80.0-100.0) fL MCHC 30.3 L (31.0-37.0) g/dL RDW 17.2 H (11.5-15.5) % Plt Count 142 L (150-450) k/uL Lymphocytes # 0.3 L (1.0-4.8) k/uL PT 12.1 H (9.0-12.0) sec INR 1.2 H (<1.2) Chloride 112 H (98-107) mmol/L Carbon Dioxide 11 L (22-30) mmol/L BUN 103 H* (9-20) mg/dL Creatinine 6.70 H* (0.66-1.25) mg/dL Glucose 167 H (74-99) mg/dL POC Glucose (mg/dL) (75-99) mg/dL Calcium 7.5 L (8.4-10.2) mg/dL Troponin I (0.000-0.034) ng/mL Total Protein 6.0 L (6.3-8.2) g/dL Albumin 3.3 L (3.5-5.0) g/dL 06/27/17 06/27/17 06/27/17 Range/Units 06:12 11:34 13:21 RBC (4.30-5.90) m/uL Hgb (13.0-17.5) gm/dL Hct (39.0-53.0) % MCV (80.0-100.0) fL MCHC (31.0-37.0) g/dL RDW (11.5-15.5) % Plt Count (150-450) k/uL Lymphocytes # (1.0-4.8) k/uL PT (9.0-12.0) sec INR (<1.2) Chloride (98-107) mmol/L Carbon Dioxide (22-30) mmol/L BUN (9-20) mg/dL Creatinine (0.66-1.25) mg/dL Glucose (74-99) mg/dL POC Glucose (mg/dL) 170 H 205 H (75-99) mg/dL Calcium (8.4-10.2) mg/dL Troponin I 0.097 H* (0.000-0.034) ng/mL Total Protein (6.3-8.2) g/dL Albumin (3.5-5.0) g/dL 06/27/17 Range/Units 16:28 RBC (4.30-5.90) m/uL Hgb (13.0-17.5) gm/dL Hct (39.0-53.0) % MCV (80.0-100.0) fL MCHC (31.0-37.0) g/dL RDW (11.5-15.5) % Plt Count (150-450) k/uL Lymphocytes # (1.0-4.8) k/uL PT (9.0-12.0) sec INR (<1.2) Chloride (98-107) mmol/L Carbon Dioxide (22-30) mmol/L BUN (9-20) mg/dL Creatinine (0.66-1.25) mg/dL Glucose (74-99) mg/dL POC Glucose (mg/dL) 176 H (75-99) mg/dL Calcium (8.4-10.2) mg/dL Troponin I (0.000-0.034) ng/mL Total Protein (6.3-8.2) g/dL Albumin (3.5-5.0) g/dL Microbiology - Last 24 Hours (Table) 06/27/17 13:30 Wound Culture - Preliminary Heel - Left Laboratory Results WBC 4.8 k/uL (3.8-10.6) 06/26/17 23:07 RBC 2.49 m/uL (4.30-5.90) L 06/26/17 23:07 Hgb 8.0 gm/dL (13.0-17.5) L 06/26/17 23:07 Hct 26.4 % (39.0-53.0) L 06/26/17 23:07 MCV 106.0 fL (80.0-100.0) H 06/26/17 23:07 MCH 32.1 pg (25.0-35.0) 06/26/17 23:07 MCHC 30.3 g/dL (31.0-37.0) L 06/26/17 23:07 RDW 17.2 % (11.5-15.5) H 06/26/17 23:07 Plt Count 142 k/uL (150-450) L 06/26/17 23:07 Neutrophils % 80 % 06/26/17 23:07 Lymphocytes % 5 % 06/26/17 23:07 Monocytes % 7 % 06/26/17 23:07 Eosinophils % 6 % 06/26/17 23:07 Basophils % 1 % 06/26/17 23:07 Neutrophils # 3.8 k/uL (1.3-7.7) 06/26/17 23:07 Lymphocytes # 0.3 k/uL (1.0-4.8) L 06/26/17 23:07 Monocytes # 0.3 k/uL (0-1.0) 06/26/17 23:07 Eosinophils # 0.3 k/uL (0-0.7) 06/26/17 23:07 Basophils # 0.0 k/uL (0-0.2) 06/26/17 23:07 Hypochromasia Moderate 06/26/17 23:07 Anisocytosis Slight 06/26/17 23:07 Macrocytosis Moderate 06/26/17 23:07 PT 12.1 sec (9.0-12.0) H 06/26/17 23:07 INR 1.2 (<1.2) H 06/26/17 23:07 APTT 26.5 sec (22.0-30.0) 06/26/17 23:07 Sodium 141 mmol/L (137-145) 06/26/17 23:07 Potassium 4.4 mmol/L (3.5-5.1) 06/26/17 23:07 Chloride 112 mmol/L (98-107) H 06/26/17 23:07 Carbon Dioxide 11 mmol/L (22-30) L 06/26/17 23:07 Anion Gap 18 mmol/L 06/26/17 23:07 BUN 103 mg/dL (9-20) H* 06/26/17 23:07 Creatinine 6.70 mg/dL (0.66-1.25) H* 06/26/17 23:07 Est GFR (MDRD) Af Amer 10 (>60 ml/min/1.73 sqM) 06/26/17 23:07 Est GFR (MDRD) Non-Af 8 (>60 ml/min/1.73 sqM) 06/26/17 23:07 Glucose 167 mg/dL (74-99) H 06/26/17 23:07 POC Glucose (mg/dL) 176 mg/dL (75-99) H 06/27/17 16:28 POC Glu Activities Leader Lenka Syed 06/27/17 16:28 Plasma Lactic Acid Levi 1.3 mmol/L (0.7-2.0) 06/26/17 23:07 Calcium 7.5 mg/dL (8.4-10.2) L 06/26/17 23:07 Total Bilirubin 0.2 mg/dL (0.2-1.3) 06/26/17 23:07 AST 18 U/L (17-59) 06/26/17 23:07 ALT 36 U/L (21-72) 06/26/17 23:07 Alkaline Phosphatase 88 U/L (38-126) 06/26/17 23:07 Troponin I 0.097 ng/mL (0.000-0.034) H* 06/27/17 13:21 NT-Pro-B Natriuret Pep 62149 pg/mL 06/26/17 23:07 Total Protein 6.0 g/dL (6.3-8.2) L 06/26/17 23:07 Albumin 3.3 g/dL (3.5-5.0) L 06/26/17 23:07 Microbiology 06/27/17 13:30 Heel - Left Wound Culture - Preliminary Assessment and Plan (1) Acute exacerbation of CHF (congestive heart failure) Current Visit: Yes Status: Acute Code(s): I50.9 - HEART FAILURE, UNSPECIFIED SNOMED Code(s): 76255143 (2) 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 The patient has had progressive decline of his status especially the last short period of time. The patient discontinued his insulin pump. He now has uncontrolled diabetes. He has marked worsening of his renal failure and has evidence of uremia with increasing weakness and multiple falls. The patient's family is present and are aware of the situation. Apparently they will decide over the next day or so with the plan and shall be asked to either reinitiating dialysis or consideration of comfort care. For now blood sugars are being controlled. Fluids are being managed with diuretic therapy. Heart failure is being treated. The ulcer will be treated with antibiotic therapy including vancomycin and Rocephin is added for gram-negative coverage. The patient does have a penicillin ALLERGY of undetermined significance. Wound cultures obtained which will further help direct antimicrobial therapy. Local wound care has been requested with medical honey and ABDs to absorb the somewhat copious drainage. Depending on the plan will determine if she needs an extensive debridement. X-ray has failed reveal evidence of underlying bony infection. However may need further imaging depending on the overall plans. Will need adequate protein intake and if possible multivitamin to help with wound healing. The patient's son Luis is present and is very helpful . Current Visit: Yes Status: Acute Code(s): E11.621 - TYPE 2 DIABETES MELLITUS WITH FOOT ULCER; L97.522 - NON-PRS CHRONIC ULCER OTH PRT LEFT FOOT W FAT LAYER EXPOSED SNOMED Code(s): 791675692 (3) Diabetes type 2, uncontrolled Current Visit: No Status: Acute Code(s): E11.65 - TYPE 2 DIABETES MELLITUS WITH HYPERGLYCEMIA SNOMED Code(s): 08146324 (4) Chronic renal failure Current Visit: Yes Status: Acute Code(s): N18.9 - CHRONIC KIDNEY DISEASE, UNSPECIFIED SNOMED Code(s): 74209468
[2017-06-27] MEDS: HEPARIN SODIUM,PORCINE 5,000 UNIT/ML 1 ML VIAL SQ SCH (20:41)
[2017-06-27] MEDS: ATORVASTATIN 40 MG TAB PO SCH (20:41)
[2017-06-27 20:51] LABS: Glucose,Whole Blood 216 mg/dL (75-99)
[2017-06-28 02:29] LABS: Calcium 7.5 mg/dL (8.4-10.2); Potassium 4.2 mmol/L (3.5-5.1)
[2017-06-28 02:54] LABS: Phosphorus 8.3 mg/dL (2.5-4.5)
[2017-06-28 06:02] LABS: Glucose,Whole Blood 128 mg/dL (75-99)
[2017-06-28] MEDS: INSULIN LISPRO (humaLOG) 300 UNIT/3 ML VIAL SQ SCH ×4 (06:04→21:03)
[2017-06-28] MEDS: LEVOTHYROXINE 125 MCG TAB PO SCH (06:05)
[2017-06-28] MEDS: ASCORBIC ACID 500 MG TAB PO SCH (08:50)
[2017-06-28] MEDS: ALLOPURINOL 100 MG TAB PO SCH ×2 (08:50→20:35)
[2017-06-28] MEDS: FUROSEMIDE 10 MG/ML 10 ML VIAL IV SCH ×3 (08:50→23:14)
[2017-06-28] MEDS: amLODIPine 10 MG TAB PO SCH (08:50)
[2017-06-28] MEDS: HEPARIN SODIUM,PORCINE 5,000 UNIT/ML 1 ML VIAL SQ SCH ×2 (08:51→20:35)
[2017-06-28] MEDS: PRAMIPEXOLE 0.25 MG TAB PO SCH (08:51)
[2017-06-28] MEDS: LABETALOL 200 MG TAB PO SCH ×2 (08:51→20:35)
[2017-06-28] MEDS: SODIUM BICARBONATE TAB 650 MG TAB PO SCH ×3 (08:51→20:35)
[2017-06-28] MEDS: HYDROcodone/APAP 7.5-325MG 1 EACH TAB PO SCH ×2 (08:51→20:37)
[2017-06-28] MEDS: DULoxetine HCL 30 MG CAPSULE.DR PO SCH (08:51)
[2017-06-28] MEDS: cefTRIAXone IN SWFI 1,000 MG/10 ML SYRINGE IVP SCH (08:57)
[2017-06-28] MEDS ORDERED: LEVOTHYROXINE 50 MCG TAB PO SCH (09:00)
--- NOTE | 2017-06-28 09:55 | ECHOF ---
Referral Reason:shortness of breath MEASUREMENTS -------- HEIGHT: 182.9 cm WEIGHT: 148.8 kg BP: 122/54 RVIDd: 4.0 cm (< 3.3) IVSd: 1.2 cm (0.6 - 1.1) LVIDd: 6.8 cm (3.9 - 5.3) LVPWd: 1.3 cm (0.6 - 1.1) IVSs: 1.6 cm LVIDs: 5.2 cm LVPWs: 1.7 cm LA Diam: 4.4 cm (2.7 - 3.8) Ao Diam: 3.9 cm (2.0 - 3.7) AV Cusp: 2.1 cm (1.5 - 2.6) LA Diam: 4.1 cm (2.7 - 3.8) MV EXCURSION: 30.499 mm (> 18.000) MV EF SLOPE: 68 mm/s (70 - 150) EPSS: 1.1 cm MV E Moises: 1.11 m/s MV DecT: 157 ms MV A Moises: 1.15 m/s MV E/A Ratio: 0.97 RAP: 5.00 mmHg RVSP: 61.27 mmHg FINDINGS -------- Undetermined rhythm. Morbid Obesity The left ventricle is moderately dilated. There is borderline concentric left ventricular hypertrop hy. Overall left ventricular systolic function is moderate-severely impaired with, an EF between 30 - 35 %. Basal lateral LV wall motion is akinetic. Basal inferior LV wall motion is akinetic. Basal inferoseptal LV wall motion is akinetic. Mid lateral LV wall motion is akinetic. Mid inf erior LV wall motion is akinetic. Apical inferior LV wall motion is akinetic. The right ventricle is severely enlarged. The left atrium is moderately dilated. The right atrial size is normal. 1.5MG OF DEFINITY UTLIZED: 2 OR MORE WALL SEGMENTS NOT VISUALIZED. There is mild aortic valve sclerosis. Mild mitral annular calcification present. Mild mitral regurgitation is present. Mild tricuspid regurgitation present. There is moderate pulmonary hypertension. The right ventric ular systolic pressure, as measured by Doppler, is 61.27mmHg. The pulmonic valve was not well visualized. Trace/mild (physiologic) pulmonic regurgitation. The aortic root size is normal. There is no pericardial effusion. CONCLUSIONS -------- 1. Morbid Obesity 2. The left ventricle is moderately dilated. 3. There is borderline concentric left ventricular hypertrophy. 4. Overall left ventricular systolic function is moderate-severely impaired with, an EF between 30 - 35 %. 5. Basal lateral LV wall motion is akinetic. 6. Basal inferior LV wall motion is akinetic. 7. Basal inferoseptal LV wall motion is akinetic. 8. Mid lateral LV wall motion is akinetic. 9. Mid inferior LV wall motion is akinetic. 10. Apical inferior LV wall motion is akinetic. 11. The right ventricle is severely enlarged. 12. The left atrium is moderately dilated. 13. 1.5MG OF DEFINITY UTLIZED: 2 OR MORE WALL SEGMENTS NOT VISUALIZED. 14. There is mild aortic valve sclerosis. 15. Mild mitral regurgitation is present. 16. Mild tricuspid regurgitation present. 17. There is moderate pulmonary hypertension. 18. Trace/mild (physiologic) pulmonic regurgitation. 19. The aortic root size is normal. 20. There is no pericardial effusion. TERRITORY SALES PROFESSIONAL: Ninfa Bhagat RDCS
[2017-06-28] MEDS ORDERED: VANCOMYCIN 2,250 MG in SODIUM CHLORIDE 0.9% 500 ML IVPB ONE (10:00)
--- NOTE | 2017-06-28 11:29 | P.PN ---
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 The patient stated that he was in his usual state of health until about a week ago when he started experiencing frequent falls. He fell 5 times within a week. Did not lose his consciousness. Did not have any symptoms of dizziness or lightheadedness and around episodes, heart racing or fluttering, or any chest pain or chest discomfort. At the same time he started noticing progressive exertional dyspnea without orthopnea and without PND. Also he noticed severe bilateral lower extremities edema. The patient stated that he was compliant with all of his medications as well as with his diet. Does not recall having any recent history of upper respiratory infection or pneumonia or so. Clinically the patient does not look in any respiratory distress. He is morbidly obese. He does have severe bilateral lower extremities pitting edema associated with chronic skin changes and he does have bilateral crackles on physical examination. The chest x-ray showed cardiomegaly associated with congestive heart failure. The BNP came in to be severe lead elevated. The hemoglobin came in to be around 8. The creatinine is 6 and a GFR is less than 10. The patient underwent an echocardiogram which revealed severe lesion. All dysfunction with EF around 30-35% with wall motion abnormalities concerning for severe underlying coronary artery disease. The creatinine continues to be around 6. The patient is going to start hemodialysis later on today. I will DC the [facility] and start the patient on small dose of PHILLIP inhibitor. He is on beta ella with labetalol which we will continue. Objective - Vital Signs Vital signs: Vital Signs Temp 98.2 F 06/28/17 08:00 Pulse 68 06/28/17 08:00 Resp 19 06/28/17 04:00 BP 137/63 06/28/17 08:00 Pulse Ox 90 L 06/28/17 08:00 Intake & Output 06/27/17 06/28/17 06/28/17 18:59 06:59 18:59 Intake Total 1840 118 Output Total 400 Balance 1440 118 Weight 149 kg Intake: IV 300 Vancomycin 2,250 mg In 300 Sodium Chloride 0.9% 500 ml @ 167 mls/hr IVPB ONCE STA Rx#:[id number] Oral 1540 118 Output: Urine 400 Other: Voiding Method Urinal Urinal Incontinent # Voids 1 1 # Bowel Movements 0 - Constitutional General appearance: Present: no acute distress - Respiratory Respiratory: bilateral: diminished - Cardiovascular Rhythm: regular Heart sounds: normal: S1, S2 - Labs CBC & Chem 7: 06/26/17 23:07 06/28/17 02:00 Labs: Abnormal Lab Results - Last 24 Hours (Table) 06/27/17 06/27/17 06/27/17 Range/Units 11:34 13:21 16:28 Chloride (98-107) mmol/L Carbon Dioxide (22-30) mmol/L BUN (9-20) mg/dL Creatinine (0.66-1.25) mg/dL Glucose (74-99) mg/dL POC Glucose (mg/dL) 205 H 176 H (75-99) mg/dL Calcium (8.4-10.2) mg/dL Phosphorus (2.5-4.5) mg/dL Troponin I 0.097 H* (0.000-0.034) ng/mL 06/27/17 06/27/17 06/28/17 Range/Units 19:07 20:50 01:54 Chloride (98-107) mmol/L Carbon Dioxide (22-30) mmol/L BUN (9-20) mg/dL Creatinine (0.66-1.25) mg/dL Glucose (74-99) mg/dL POC Glucose (mg/dL) 216 H (75-99) mg/dL Calcium (8.4-10.2) mg/dL Phosphorus (2.5-4.5) mg/dL Troponin I 0.081 H* 0.078 H* (0.000-0.034) ng/mL 06/28/17 06/28/17 Range/Units 02:00 06:01 Chloride 113 H (98-107) mmol/L Carbon Dioxide 13 L (22-30) mmol/L BUN 99 H* (9-20) mg/dL Creatinine 6.70 H* (0.66-1.25) mg/dL Glucose 138 H (74-99) mg/dL POC Glucose (mg/dL) 128 H (75-99) mg/dL Calcium 7.5 L (8.4-10.2) mg/dL Phosphorus 8.3 H* (2.5-4.5) mg/dL Troponin I (0.000-0.034) ng/mL Microbiology - Last 24 Hours (Table) 06/27/17 13:30 Gram Stain - Preliminary Heel - Left Wound Culture - Preliminary Gram Neg Bacilli 06/26/17 23:07 Blood Culture - Preliminary Blood No Growth after 24 hours Assessment and Plan Assessment: This is a pleasant 76-year-old gentleman with obesity, diabetes, hypertension, dyslipidemia and end-stage renal disease presented to the hospital with volume overload and evidence of congestive heart failure and known if it's due to systolic or diastolic dysfunction at this point of time. The patient was already started on IV Lasix. He scheduled to have hemodialysis tomorrow. The echocardiogram revealed severe impaired LV function. From the cardiovascular standpoint of view, I will DC the Norvasc and start the patient on lisinopril at a small dose. He is on metoprolol which we will continue. The cardiac enzymes are slightly abnormal. I will start the patient on small dose of aspirin.
[2017-06-28 12:09] LABS: Iron Saturation 22.73 (15.00-50.00); Iron(FE) 45 ug/dL (65-175); Total Iron Binding Capacity 198 ug/dL (228-460)
[2017-06-28 12:35] LABS: Glucose,Whole Blood 208 mg/dL (75-99)
[2017-06-28] MEDS: ASPIRIN 325 MG TAB PO SCH (12:39)
[2017-06-28] MEDS: SEVELAMER 800 MG TAB PO SCH ×2 (12:39→17:12)
[2017-06-28 13:20] LABS: Hepatitis B Surface Antibody Equivocal (Non-Reactive)
--- NOTE | 2017-06-28 15:16 | P.PN ---
Subjective Progress Note Date: 06/28/17 This is a 73-year-old gentleman patient of Dr. Chirinos a previous medical history significant for chronic multiple medical problems including hypertension and hypertensive cardiovascular disease, diabetes mellitus type 2 was on insulin pump ( stopped 7 weeks ago ) , diabetic polyneuropathy, diabetic retinopathy, end stage renal disease was on hemodialysis status post right forearm AV fistula, followed by peritoneal dialysis with a CAPD at home which he stopped doing to 1 year ago, history of hyperlipidemia, history of super morbid obesity with obstructive sleep apnea as well as obesity hypoventilation syndrome, patient was last hospitalized in 2013 for a colitis and peritonitis requiring antibiotics. Patient was doing well until one week ago when he started having frequent falls. Patient fell 5 times in the past week. According to the son at bedside , patient stopped dialysis 1 year ago as he lost hope in recovery. According to the patient, he was seen by a classifier tender who recommended patient going off dialysis for 2 weeks but he did not see the classifier tender as he moved from [place]. Since then patient has been adamant about not starting dialysis and continuing Lasix and Bumex as outpatient. Patient was initially on hemodialysis but then went on to peritoneal dialysis for 3 years before going off dialysis in September 2014. Patient is making good urine output on the diuretics. Patient had multiple falls during the past week which appears to be mechanical as patient states that he did not lose consciousness. Patient denies dizziness, seizures or balance abnormality. He states he feels heavy in his legs and his left knee just gave away. He also has noticed worsening shortness of breath on exertion with worsening lower extremity edema and nonhealing wound on his left heel since Wednesday. Patient states he did not notice the wound before. He came to the hospital with a creatinine of 6.7(his last outpatient creatinine was 4.55 in December 2016) and a BUN 108. Patient's bicarb was 11, potassium was within normal limits. Hemoglobin 8 and BNP 34, 800. X-ray of the left knee suggested advanced osteoarthritis. X-ray of left foot suggested significant soft tissue swelling in the forefoot but no focal destruction suggesting of osteo-mellitus. Chest x-ray suggestive of cardiomegaly with pulmonary vascularity suggestive of mild heart failure. Echo Was ordered. 06/28: Patient has been seen in consultation by Dr. Nye with recommendations for antibiotics in the form of vancomycin and Rocephin with local wound care of [facility] and [facility] to absorb drainage. Bone scan ordered today. Echocardiogram reveals borderline concentric left ventricular hypertrophy, EF 30 -35%, mild mitral regurgitation, tricuspid regurgitation, moderate pulmonary hypertension, left atrium moderately dilated, right ventricle severely enlarged , LV wall motion akinetic. Cardiology has discontinued Norvasc and started him on PHILLIP inhibitor and continued labetalol. Patient is followed by nephrology. He is continued on Lasix 80 mg IV 3 times daily, sodium bicarb. Hemodialysis as scheduled for today. Objective - Vital Signs Vital signs: Vital Signs Temp 98.2 F 06/28/17 08:00 Pulse 68 06/28/17 08:00 Resp 19 06/28/17 04:00 BP 137/63 06/28/17 08:00 Pulse Ox 90 L 06/28/17 08:00 Intake & Output 06/27/17 06/28/17 06/28/17 18:59 06:59 18:59 Intake Total 1840 118 Output Total 400 Balance 1440 118 Weight 149 kg Intake: IV 300 Vancomycin 2,250 mg In 300 Sodium Chloride 0.9% 500 ml @ 167 mls/hr IVPB ONCE STA Rx#:[id number] Oral 1540 118 Output: Urine 400 Other: Voiding Method Urinal Urinal Incontinent # Voids 1 1 # Bowel Movements 0 - Exam General appearance: mild distress, obese - EENT Eyes: EOMI, PERRLA, no photophobia, dentition normal ENT: hearing grossly normal, no pharyngeal erythema, no tonsillar exudates Ears: bilateral: normal - Neck Neck: no lymphadenopathy, normal ROM, no rigidity Carotids: bilateral: upstroke normal Thyroid: bilateral: normal size - Respiratory Respiratory: bilateral: diminished, dullness, rales, rhonchi, negative: wheezing , prolonged expiration, prolonged inspiration - Cardiovascular Rhythm: regular Heart sounds: normal: S1, S2 Abnormal Heart Sounds: systolic murmur, no diastolic murmur, no rub systolic murmur (1) Type: holo leg Peripheral Edema: bilateral: 3+, Pitting - Gastrointestinal General gastrointestinal: distended, no hepatomegaly, normal bowel sounds, soft , no splenomegaly - Integumentary Integumentary: decreased turgor, ulcer (left heel ulcer with superficial skin sloughing, purulent drainage, surrounding erythema, not warm to touch. Chronic venous stasis bilaterally) - Neurologic Neurologic: CNII-XII intact - Musculoskeletal Musculoskeletal: generalized weakness, strength equal bilaterally - Psychiatric Psychiatric: no appropriate affect (Depressed about recent demise of a friend in dialysis ) - Labs CBC & Chem 7: 06/26/17 23:07 06/28/17 02:00 Labs: Abnormal Lab Results - Last 24 Hours (Table) 06/27/17 06/27/17 06/27/17 Range/Units 11:34 13:21 16:28 Chloride (98-107) mmol/L Carbon Dioxide (22-30) mmol/L BUN (9-20) mg/dL Creatinine (0.66-1.25) mg/dL Glucose (74-99) mg/dL POC Glucose (mg/dL) 205 H 176 H (75-99) mg/dL Calcium (8.4-10.2) mg/dL Phosphorus (2.5-4.5) mg/dL Troponin I 0.097 H* (0.000-0.034) ng/mL 06/27/17 06/27/17 06/28/17 Range/Units 19:07 20:50 01:54 Chloride (98-107) mmol/L Carbon Dioxide (22-30) mmol/L BUN (9-20) mg/dL Creatinine (0.66-1.25) mg/dL Glucose (74-99) mg/dL POC Glucose (mg/dL) 216 H (75-99) mg/dL Calcium (8.4-10.2) mg/dL Phosphorus (2.5-4.5) mg/dL Troponin I 0.081 H* 0.078 H* (0.000-0.034) ng/mL 06/28/17 06/28/17 Range/Units 02:00 06:01 Chloride 113 H (98-107) mmol/L Carbon Dioxide 13 L (22-30) mmol/L BUN 99 H* (9-20) mg/dL Creatinine 6.70 H* (0.66-1.25) mg/dL Glucose 138 H (74-99) mg/dL POC Glucose (mg/dL) 128 H (75-99) mg/dL Calcium 7.5 L (8.4-10.2) mg/dL Phosphorus 8.3 H* (2.5-4.5) mg/dL Troponin I (0.000-0.034) ng/mL Microbiology - Last 24 Hours (Table) 06/27/17 13:30 Gram Stain - Preliminary Heel - Left Wound Culture - Preliminary Gram Neg Bacilli 06/26/17 23:07 Blood Culture - Preliminary Blood No Growth after 24 hours Assessment and Plan Plan: # 1volume overload likely secondary to lack of dialysis for chronic kidney disease stage V - He is scheduled for hemodialysis today would like to switch to peritoneal dialysis - [employer] consult appreciated. Continue Lasix 80 mg IV every 8 hours - PTH, iron profile ordered - Potassium within normal limits - Patient may require daily dialysis for first few days #2 acute hypoxic respiratory failure likely secondary to volume overload and component of acute systolic heart failure -Continue Lasix, patient started on lisinopril #3 cellulitis of the left heel - Continue vancomycin and Rocephin - Consult with Dr. Nye appreciated. Continue local wound care with [facility]. - Bone scan ordered 4 hypertension currently on labetalol 200 mg twice daily, lisinopril 2.5 mg daily. Norvasc was discontinued #5 uncontrolled type 2 diabetes- patient is off insulin for the past 7 weeks, glucose between 150-170 of insulin pump, the start patient on insulin sliding scale and switch to simpler regimen with lantus and lispro on discharge - HbA1c 9.2 #6 Hypothyroidism - Continue Levothyroxine 250 mcg po daily #7 restless leg syndrome continue pramipexole 0.25 mg daily #8 metabolic acidosis likely secondary to chronic kidney disease -Continue bicarb 650 mg 3 times a day #9 gout unspecified reduce allopurinol from 100 mg twice daily to 100 mg daily colchicine held #10 depression recurrent continue duloxetine 30 mg daily #11 DVT prophylaxis with heparin 5000 mg every 12 with compression devices CODE STATUS no code Discharge plan: [place] under the care of Dr. Chirinos Impression and plan of care have been directed as dictated by the signing physician. Nasreen Ryder nurse practitioner acting as scribe for signing physician.
[2017-06-28 16:38] LABS: Glucose,Whole Blood 160 mg/dL (75-99)
--- NOTE | 2017-06-28 18:37 | NM ---
EXAMINATION TYPE: NM bone 3 phase DATE OF EXAM: 06/28/2017 COMPARISON: NONE HISTORY: Possible osteomyelitis in the left calcaneus. Heel pain. Triple phase bone scintigraphy was performed following the injection of28.6 mCi Tc 99m MDP. Immediat e images and 6 hours post injection images acquired. FINDINGS: The flow study shows mild hyperemia of the left foot compared to the right. The delayed images show m ildly increased uptake in the right midfoot and in the toes of the left foot. This is consistent with arthritic disease. I see no abnormal uptake in the left and right calcaneus. IMPRESSION: No evidence of osteomyelitis. Evidence of mild arthritic disease. No evidence of a fracture.
[2017-06-28] MEDS: ATORVASTATIN 40 MG TAB PO SCH (20:35)
[2017-06-28 21:00] LABS: Glucose,Whole Blood 170 mg/dL (75-99)
--- NOTE | 2017-06-28 21:18 | P.PN ---
Subjective Progress Note Date: 06/28/17 Principal diagnosis: Sepsis 76-year-old male presents to the emergency center with increasing weakness and a history of recent multiple falls. The patient's son who was present is very helpful to provide some accurate details of the recent history. The patient is unable to accurately give details. However is clear that he stop dialysis over a year ago and did not want to restart it. Usually said that he stopped it about 8 weeks ago which point in time he also stopped his insulin pump. The patient's son who is an EMS worker relates that he did stop his insulin pump within the last several weeks but stopped his dialysis, which was CAPD more than a year ago. The patient has been somewhat adamant about not want to restart dialysis of any type. Over the last week the patient has had increasing weakness. EMS was called and multiple events to pick patient up from the floor. He never any significant trauma and refused to go to the ER until the current event. At this time he has evidence of significant uremia generalized weakness and some confusion. Infectious disease consult was requested given the significant new ulceration has been noted to his left heel. As the patient has had multiple falls in they're unclear how the ulcer started. The patient relates that it's not painful. He does have neuropathy and has a history of an ulcer in the past. He has a fistula in the right wrist unclear if it is adequate for hemodialysis. The son believes a PermCath was utilized for his last type of hemodialysis and then he was on CAPD until he discontinued dialysis. It is not related that he was having fevers chills or rigors at home. Just found and increasing weakness and multiple falls. The patient has multiple bruises from his falls none of them are tender. Son relates that the patient does have urinary output and they're unaware of any significant changes except of some recent incontinence. Patient has agreed and is now receiving his first dialysis session with hemodialysis. Seems to be tolerating this well so far. Feeling somewhat better today. Objective - Vital Signs Vital signs: Vital Signs Temp 97.3 F L 06/28/17 16:00 Pulse 59 L 06/28/17 16:00 Resp 19 06/28/17 04:00 BP 122/56 06/28/17 16:00 Pulse Ox 94 L 06/28/17 16:00 Intake & Output 06/28/17 06/28/17 06/29/17 06:59 18:59 06:59 Intake Total 858 Output Total 700 Balance 158 Weight 149 kg 149 kg Intake: Intake, IV Titration 500 Amount Vancomycin 2,250 mg In 500 Sodium Chloride 0.9% 500 ml @ 167 mls/hr IVPB ONCE ONE Rx#:[id number] Oral 358 Output: Urine 700 Other: Voiding Method Urinal Incontinent # Voids 1 - Exam 76-year-old male who is 6 foot 2 but still has significant obesity is pleasant and cooperative but has very poor recall HEENT: Anicteric conjunctiva are pink and moist nasal mucosa grossly intact without significant lesions, there is no thrush. Neck: The neck is supple without significant lymphadenopathy or thyromegaly. Lungs: There is symmetrical air entry with basilar crackles are heard no bronchial sounds Heart: Irregular with an audible S1 and S2 without S4 no distinct murmur click or rub Abdomen: Obese Positive bowel sounds soft and nontender without palpable masses or organomegaly. There was no guarding or rebound. Extremities: The upper extremity shows the IV site is intact. There is evidence of some ecchymosis on the upper extremities. Especially to the left shoulder. The lower extremities have evidence of the extensive bilateral lower extremity edema. There is extensive ulceration to the left heel which is full- thickness with fat layer exposed no bony structures involved. Serous drainage is noted. Neuro: Awake alert oriented to person and place, poor historian, able to move upper and lower extremities, decreased sensation from ankle distally bilaterally no tenderness at the ulcer site. - Labs CBC & Chem 7: 06/26/17 23:07 06/28/17 02:00 Labs: Abnormal Lab Results - Last 24 Hours (Table) 06/28/17 06/28/17 06/28/17 Range/Units 01:54 02:00 02:00 Chloride 113 H (98-107) mmol/L Carbon Dioxide 13 L (22-30) mmol/L BUN 99 H* (9-20) mg/dL Creatinine 6.70 H* (0.66-1.25) mg/dL Glucose 138 H (74-99) mg/dL POC Glucose (mg/dL) (75-99) mg/dL Hemoglobin A1c 7.2 H (4.0-6.0) % Calcium 7.5 L (8.4-10.2) mg/dL Phosphorus 8.3 H* (2.5-4.5) mg/dL Iron (65-175) ug/dL TIBC (228-460) ug/dL Ferritin (22.0-322.0) ng/mL Troponin I 0.078 H* (0.000-0.034) ng/mL PTH Intact (14.0-72.0) pg/mL Hep Bs Antibody (Non-Reactive) 06/28/17 06/28/17 06/28/17 Range/Units 05:44 05:44 06:01 Chloride (98-107) mmol/L Carbon Dioxide (22-30) mmol/L BUN (9-20) mg/dL Creatinine (0.66-1.25) mg/dL Glucose (74-99) mg/dL POC Glucose (mg/dL) 128 H (75-99) mg/dL Hemoglobin A1c (4.0-6.0) % Calcium (8.4-10.2) mg/dL Phosphorus (2.5-4.5) mg/dL Iron 45 L (65-175) ug/dL TIBC 198 L (228-460) ug/dL Ferritin 825.9 H (22.0-322.0) ng/mL Troponin I (0.000-0.034) ng/mL PTH Intact 314.9 H (14.0-72.0) pg/mL Hep Bs Antibody Equivocal H (Non-Reactive) 06/28/17 06/28/17 06/28/17 Range/Units 12:32 16:37 20:57 Chloride (98-107) mmol/L Carbon Dioxide (22-30) mmol/L BUN (9-20) mg/dL Creatinine (0.66-1.25) mg/dL Glucose (74-99) mg/dL POC Glucose (mg/dL) 208 H 160 H 170 H (75-99) mg/dL Hemoglobin A1c (4.0-6.0) % Calcium (8.4-10.2) mg/dL Phosphorus (2.5-4.5) mg/dL Iron (65-175) ug/dL TIBC (228-460) ug/dL Ferritin (22.0-322.0) ng/mL Troponin I (0.000-0.034) ng/mL PTH Intact (14.0-72.0) pg/mL Hep Bs Antibody (Non-Reactive) Microbiology - Last 24 Hours (Table) 06/27/17 13:30 Gram Stain - Preliminary Heel - Left Wound Culture - Preliminary Gram Neg Bacilli 06/26/17 23:07 Blood Culture - Preliminary Blood No Growth after 24 hours Laboratory Results WBC 4.8 k/uL (3.8-10.6) 06/26/17 23:07 RBC 2.49 m/uL (4.30-5.90) L 06/26/17 23:07 Hgb 8.0 gm/dL (13.0-17.5) L 06/26/17 23:07 Hct 26.4 % (39.0-53.0) L 06/26/17 23:07 MCV 106.0 fL (80.0-100.0) H 06/26/17 23:07 MCH 32.1 pg (25.0-35.0) 06/26/17 23:07 MCHC 30.3 g/dL (31.0-37.0) L 06/26/17 23:07 RDW 17.2 % (11.5-15.5) H 06/26/17 23:07 Plt Count 142 k/uL (150-450) L 06/26/17 23:07 Neutrophils % 80 % 06/26/17 23:07 Lymphocytes % 5 % 06/26/17 23:07 Monocytes % 7 % 06/26/17 23:07 Eosinophils % 6 % 06/26/17 23:07 Basophils % 1 % 06/26/17 23:07 Neutrophils # 3.8 k/uL (1.3-7.7) 06/26/17 23:07 Lymphocytes # 0.3 k/uL (1.0-4.8) L 06/26/17 23:07 Monocytes # 0.3 k/uL (0-1.0) 06/26/17 23:07 Eosinophils # 0.3 k/uL (0-0.7) 06/26/17 23:07 Basophils # 0.0 k/uL (0-0.2) 06/26/17 23:07 Hypochromasia Moderate 06/26/17 23:07 Anisocytosis Slight 06/26/17 23:07 Macrocytosis Moderate 06/26/17 23:07 PT 12.1 sec (9.0-12.0) H 06/26/17 23:07 INR 1.2 (<1.2) H 06/26/17 23:07 APTT 26.5 sec (22.0-30.0) 06/26/17 23:07 Sodium 139 mmol/L (137-145) 06/28/17 02:00 Potassium 4.2 mmol/L (3.5-5.1) 06/28/17 02:00 Chloride 113 mmol/L (98-107) H 06/28/17 02:00 Carbon Dioxide 13 mmol/L (22-30) L 06/28/17 02:00 Anion Gap 13 mmol/L 06/28/17 02:00 BUN 99 mg/dL (9-20) H* 06/28/17 02:00 Creatinine 6.70 mg/dL (0.66-1.25) H* 06/28/17 02:00 Est GFR (MDRD) Af Amer 10 (>60 ml/min/1.73 sqM) 06/28/17 02:00 Est GFR (MDRD) Non-Af 8 (>60 ml/min/1.73 sqM) 06/28/17 02:00 Glucose 138 mg/dL (74-99) H 06/28/17 02:00 POC Glucose (mg/dL) 170 mg/dL (75-99) H 06/28/17 20:57 POC Glu Pipe Buffer TANK Go Monge 06/28/17 20:[address] Glu mg/dL 160 06/28/17 02:00 Hemoglobin A1c 7.2 % (4.0-6.0) H 06/28/17 02:00 Plasma Lactic Acid Levi 1.3 mmol/L (0.7-2.0) 06/26/17 23:07 Calcium 7.5 mg/dL (8.4-10.2) L 06/28/17 02:00 Phosphorus 8.3 mg/dL (2.5-4.5) H* 06/28/17 02:00 Iron 45 ug/dL (65-175) L 06/28/17 05:44 TIBC 198 ug/dL (228-460) L 06/28/17 05:44 Iron Saturation 22.73 (15.00-50.00) 06/28/17 05:44 Ferritin 825.9 ng/mL (22.0-322.0) H 06/28/17 05:44 Total Bilirubin 0.2 mg/dL (0.2-1.3) 06/26/17 23:07 AST 18 U/L (17-59) 06/26/17 23:07 ALT 36 U/L (21-72) 06/26/17 23:07 Alkaline Phosphatase 88 U/L (38-126) 06/26/17 23:07 Troponin I 0.078 ng/mL (0.000-0.034) H* 06/28/17 01:54 NT-Pro-B Natriuret Pep 89299 pg/mL 06/26/17 23:07 Total Protein 6.0 g/dL (6.3-8.2) L 06/26/17 23:07 Albumin 3.3 g/dL (3.5-5.0) L 06/26/17 23:07 PTH Intact 314.9 pg/mL (14.0-72.0) H 06/28/17 05:44 Random Vancomycin 13.0 ug/mL 06/28/17 02:00 Hep Bs Antigen Non-Reactive (Non-Reactive) 06/28/17 05:44 Hep Bs Antibody Equivocal (Non-Reactive) H 06/28/17 05:44 Hep Bs Antibody, Quant 10.6 mIU/mL 06/28/17 05:44 Microbiology 06/27/17 13:30 Heel - Left Gram Stain - Preliminary 06/27/17 13:30 Heel - Left Wound Culture - Preliminary Gram Neg Bacilli 06/26/17 23:07 Blood Blood Culture - Preliminary No Growth after 24 hours Assessment and Plan (1) Acute exacerbation of CHF (congestive heart failure) Current Visit: Yes Status: Acute Code(s): I50.9 - HEART FAILURE, UNSPECIFIED SNOMED Code(s): 85234582 (2) 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 The patient has had progressive decline of his status especially the last short period of time. The patient discontinued his insulin pump. He now has uncontrolled diabetes. He has marked worsening of his renal failure and has evidence of uremia with increasing weakness and multiple falls. The patient's family is present and are aware of the situation. Apparently they will decide over the next day or so with the plan and shall be asked to either reinitiating dialysis or consideration of comfort care. For now blood sugars are being controlled. Fluids are being managed with diuretic therapy. Heart failure is being treated. The ulcer will be treated with antibiotic therapy including vancomycin and Rocephin is added for gram-negative coverage. The patient does have a penicillin ALLERGY of undetermined significance. Wound cultures obtained which will further help direct antimicrobial therapy. Local wound care has been requested with medical honey and ABDs to absorb the somewhat copious drainage. Depending on the plan will determine if he needs an extensive debridement. X-ray has failed reveal evidence of underlying bony infection. Bone scan has been ordered to evaluate for deeper infection. Otherwise agreed to hemodialysis and further aggressive therapy will continue current workup. Protein supplementation and vitamin is given. He's been seen by nephrology and is a dialysis is started. Wound culture with gram-negative bacilli and is not a Rocephin has been ordered and will be monitored. Current Visit: Yes Status: Acute Code(s): E11.621 - TYPE 2 DIABETES MELLITUS WITH FOOT ULCER; L97.522 - NON-PRS CHRONIC ULCER OTH PRT LEFT FOOT W FAT LAYER EXPOSED SNOMED Code(s): 662877853 (3) Diabetes type 2, uncontrolled Current Visit: No Status: Acute Code(s): E11.65 - TYPE 2 DIABETES MELLITUS WITH HYPERGLYCEMIA SNOMED Code(s): 34573672 (4) Chronic renal failure Current Visit: Yes Status: Acute Code(s): N18.9 - CHRONIC KIDNEY DISEASE, UNSPECIFIED SNOMED Code(s): 00364353
--- NOTE | 2017-06-28 22:00 | PN ---
PROGRESS NOTE Patient is seen for followup for CKD, currently stage 5 with severe fluid overload and being started on dialysis. The patient has an AV fistula in his right forearm and we will be using this as for his first treatment today. Previously, patient had been on PD and he had expressed his wishes that he would not want to undergo any kind of renal replacement therapy. At this time he states that he wants to proceed with dialysis and he prefers PD. I have advised him that at this time since we are starting in an acute situation, we will be starting with hemodialysis since he already has a functioning access and once his overall condition improves, we can consider switching to PD down the road. EXAMINATION: Blood pressure is 137/63, heart rate 68 per minute, patient is afebrile. Examination of the heart S1, S2. Examination lungs bilateral breath sounds are heard. Abdomen is soft, nontender. Examination lower extremities shows chronic edema, chronic skin changes about 3+ bilaterally for the edema. [employer] exam is grossly intact. LAB: Show sodium 139, potassium 4.2, CO2 is at 13, BUN 99, serum creatinine 6.7, iron saturation was 22%. PTH elevated at 314. ASSESSMENT: 1. Chronic kidney disease stage V currently end-stage renal disease, starting hemodialysis today. Patient will receive his first treatment. He will use his right forearm AV fistula. 2. Fluid overload. Expect improvement with dialysis. Patient will be dialyzed again tomorrow. 3. Severe metabolic acidosis secondary to renal failure. Continue with the oral sodium bicarb. This should improve with the hemodialysis as well. 4. Chronic kidney disease mineral bone disorder. PTH is around 314 is acceptable for end-stage renal disease. 5. Left foot ulcer/wound with no evidence of osteomyelitis on the bone scan. 6. Congestive heart failure, ejection fraction on current echocardiogram from today is noted to be 30-35%. PLAN: Hemodialysis today will repeat in a.m. Increase UF as tolerated. We will use small needles. MMODL / IJN: [id number] /
[2017-06-29 06:17] LABS: Glucose,Whole Blood 143 mg/dL (75-99)
[2017-06-29 06:49] LABS: Anisocytosis Slight; CH 31.9; CHCM 30.1; HCT 24.4 % (39.0-53.0); HDW 3.02; HGB 7.2 gm/dL (13.0-17.5); Hypochromasia Marked; MCH 31.6 pg (25.0-35.0); MCHC 29.6 g/dL (31.0-37.0); MCV 106.9 fL (80.0-100.0); Macrocytosis Marked; Mean Platelet Volume 9.1; RBC 2.28 m/uL (4.30-5.90)
[2017-06-29] MEDS: LEVOTHYROXINE 125 MCG TAB PO SCH (06:52)
[2017-06-29] MEDS: SEVELAMER 800 MG TAB PO SCH ×3 (06:53→17:25)
[2017-06-29 07:03] LABS: Calcium 7.4 mg/dL (8.4-10.2); Potassium 4.4 mmol/L (3.5-5.1)
[2017-06-29] MEDS: INSULIN LISPRO (humaLOG) 300 UNIT/3 ML VIAL SQ SCH ×4 (07:03→21:32)
[2017-06-29] MEDS: FUROSEMIDE 10 MG/ML 10 ML VIAL IV SCH ×3 (07:57→23:47)
[2017-06-29] MEDS: ALLOPURINOL 100 MG TAB PO SCH ×2 (07:57→20:30)
[2017-06-29] MEDS: ASCORBIC ACID 500 MG TAB PO SCH (07:58)
[2017-06-29] MEDS: ASPIRIN 325 MG TAB PO SCH (07:58)
[2017-06-29] MEDS: cefTRIAXone IN SWFI 1,000 MG/10 ML SYRINGE IVP SCH (07:58)
[2017-06-29] MEDS: LABETALOL 200 MG TAB PO SCH ×2 (07:59→20:30)
[2017-06-29] MEDS: LISINOPRIL 2.5 MG TAB PO SCH (07:59)
[2017-06-29] MEDS: HEPARIN SODIUM,PORCINE 5,000 UNIT/ML 1 ML VIAL SQ SCH ×2 (07:59→20:30)
[2017-06-29] MEDS: PRAMIPEXOLE 0.25 MG TAB PO SCH (07:59)
[2017-06-29] MEDS: SODIUM BICARBONATE TAB 650 MG TAB PO SCH ×3 (08:00→21:32)
[2017-06-29] MEDS: DULoxetine HCL 30 MG CAPSULE.DR PO SCH (08:00)
[2017-06-29] MEDS ORDERED: ASPIRIN 325 MG TAB PO SCH (09:00)
[2017-06-29 11:44] LABS: Glucose,Whole Blood 138 mg/dL (75-99)
--- NOTE | 2017-06-29 12:40 | P.PN ---
Subjective Progress Note Date: 06/29/17 This is a 73-year-old gentleman patient of Dr. Chirinos a previous medical history significant for chronic multiple medical problems including hypertension and hypertensive cardiovascular disease, diabetes mellitus type 2 was on insulin pump ( stopped 7 weeks ago ) , diabetic polyneuropathy, diabetic retinopathy, end stage renal disease was on hemodialysis status post right forearm AV fistula, followed by peritoneal dialysis with a CAPD at home which he stopped doing to 1 year ago, history of hyperlipidemia, history of super morbid obesity with obstructive sleep apnea as well as obesity hypoventilation syndrome, patient was last hospitalized in 2013 for a colitis and peritonitis requiring antibiotics. Patient was doing well until one week ago when he started having frequent falls. Patient fell 5 times in the past week. According to the son at bedside , patient stopped dialysis 1 year ago as he lost hope in recovery. According to the patient, he was seen by a rim buster who recommended patient going off dialysis for 2 weeks but he did not see the rim buster as he moved from [place]. Since then patient has been adamant about not starting dialysis and continuing Lasix and Bumex as outpatient. Patient was initially on hemodialysis but then went on to peritoneal dialysis for 3 years before going off dialysis in September 2014. Patient is making good urine output on the diuretics. Patient had multiple falls during the past week which appears to be mechanical as patient states that he did not lose consciousness. Patient denies dizziness, seizures or balance abnormality. He states he feels heavy in his legs and his left knee just gave away. He also has noticed worsening shortness of breath on exertion with worsening lower extremity edema and nonhealing wound on his left heel since Wednesday. Patient states he did not notice the wound before. He came to the hospital with a creatinine of 6.7(his last outpatient creatinine was 4.55 in December 2016) and a BUN 108. Patient's bicarb was 11, potassium was within normal limits. Hemoglobin 8 and BNP 34, 800. X-ray of the left knee suggested advanced osteoarthritis. X-ray of left foot suggested significant soft tissue swelling in the forefoot but no focal destruction suggesting of osteo-mellitus. Chest x-ray suggestive of cardiomegaly with pulmonary vascularity suggestive of mild heart failure. Echo Was ordered. 06/28: Patient has been seen in consultation by Dr. Nye with recommendations for antibiotics in the form of vancomycin and Rocephin with local wound care of [facility] and [facility] to absorb drainage. Bone scan ordered today. Echocardiogram reveals borderline concentric left ventricular hypertrophy, EF 30 -35%, mild mitral regurgitation, tricuspid regurgitation, moderate pulmonary hypertension, left atrium moderately dilated, right ventricle severely enlarged , LV wall motion akinetic. Cardiology has discontinued Norvasc and started him on PHILLIP inhibitor and continued labetalol. Patient is followed by nephrology. He is continued on Lasix 80 mg IV 3 times daily, sodium bicarb. Hemodialysis as scheduled for today. 06/29: Bone scan showed no evidence of osteomyelitis. Patient is to have repeat hemodialysis today. He remains in fluid overload. Wound culture from the left heel is showing gram-negative bacilli. Patient is continued on ceftriaxone and vancomycin was discontinued. Patient states his breathing is better today. He has a little nonproductive cough. Last BM Wednesday for which stool softener will be added. Objective - Vital Signs Vital signs: Vital Signs Temp 98.6 F 06/29/17 00:00 Pulse 64 06/29/17 04:00 Resp 16 06/29/17 04:00 BP 141/70 06/29/17 04:00 Pulse Ox 93 L 06/29/17 04:00 Intake & Output 06/28/17 06/29/17 06/29/17 18:59 06:59 18:59 Intake Total 858 240 Output Total 700 280 Balance 158 -280 240 Weight 149 kg 150 kg Intake: Intake, IV Titration 500 Amount Vancomycin 2,250 mg In 500 Sodium Chloride 0.9% 500 ml @ 167 mls/hr IVPB ONCE ONE Rx#:[id number] Oral 358 240 Output: Urine 700 280 Other: Voiding Method Urinal Incontinent # Voids 1 - Exam General appearance: mild distress, obese - EENT Eyes: EOMI, PERRLA, no photophobia, dentition normal ENT: hearing grossly normal, no pharyngeal erythema, no tonsillar exudates Ears: bilateral: normal - Neck Neck: no lymphadenopathy, normal ROM, no rigidity Carotids: bilateral: upstroke normal Thyroid: bilateral: normal size - Respiratory Respiratory: bilateral: diminished, dullness, rales, rhonchi, negative: wheezing , prolonged expiration, prolonged inspiration - Cardiovascular Rhythm: regular Heart sounds: normal: S1, S2 Abnormal Heart Sounds: systolic murmur, no diastolic murmur, no rub systolic murmur (1) Type: holo leg Peripheral Edema: bilateral: 3+, Pitting - Gastrointestinal General gastrointestinal: distended, no hepatomegaly, normal bowel sounds, soft , no splenomegaly - Integumentary Integumentary: decreased turgor, ulcer (left heel ulcer with superficial skin sloughing, purulent drainage, surrounding erythema, not warm to touch. Chronic venous stasis bilaterally) - Neurologic Neurologic: CNII-XII intact - Musculoskeletal Musculoskeletal: generalized weakness, strength equal bilaterally - Psychiatric Psychiatric: no appropriate affect (Depressed about recent demise of a friend in dialysis ) - Labs CBC & Chem 7: 06/29/17 06:11 06/29/17 06:11 Labs: Abnormal Lab Results - Last 24 Hours (Table) 06/28/17 06/28/17 06/28/17 Range/Units 02:00 05:44 05:44 RBC (4.30-5.90) m/uL Hgb (13.0-17.5) gm/dL Hct (39.0-53.0) % MCV (80.0-100.0) fL MCHC (31.0-37.0) g/dL RDW (11.5-15.5) % Plt Count (150-450) k/uL Chloride (98-107) mmol/L Carbon Dioxide (22-30) mmol/L BUN (9-20) mg/dL Creatinine (0.66-1.25) mg/dL Glucose (74-99) mg/dL POC Glucose (mg/dL) (75-99) mg/dL Hemoglobin A1c 7.2 H (4.0-6.0) % Calcium (8.4-10.2) mg/dL Iron 45 L (65-175) ug/dL TIBC 198 L (228-460) ug/dL Ferritin 825.9 H (22.0-322.0) ng/mL PTH Intact 314.9 H (14.0-72.0) pg/mL Hep Bs Antibody Equivocal H (Non-Reactive) 06/28/17 06/28/17 06/28/17 Range/Units 12:32 16:37 20:57 RBC (4.30-5.90) m/uL Hgb (13.0-17.5) gm/dL Hct (39.0-53.0) % MCV (80.0-100.0) fL MCHC (31.0-37.0) g/dL RDW (11.5-15.5) % Plt Count (150-450) k/uL Chloride (98-107) mmol/L Carbon Dioxide (22-30) mmol/L BUN (9-20) mg/dL Creatinine (0.66-1.25) mg/dL Glucose (74-99) mg/dL POC Glucose (mg/dL) 208 H 160 H 170 H (75-99) mg/dL Hemoglobin A1c (4.0-6.0) % Calcium (8.4-10.2) mg/dL Iron (65-175) ug/dL TIBC (228-460) ug/dL Ferritin (22.0-322.0) ng/mL PTH Intact (14.0-72.0) pg/mL Hep Bs Antibody (Non-Reactive) 06/29/17 06/29/17 06/29/17 Range/Units 06:11 06:11 06:15 RBC 2.28 L (4.30-5.90) m/uL Hgb 7.2 L (13.0-17.5) gm/dL Hct 24.4 L (39.0-53.0) % MCV 106.9 H (80.0-100.0) fL MCHC 29.6 L (31.0-37.0) g/dL RDW 17.0 H (11.5-15.5) % Plt Count 143 L (150-450) k/uL Chloride 109 H (98-107) mmol/L Carbon Dioxide 17 L (22-30) mmol/L BUN 85 H* (9-20) mg/dL Creatinine 5.98 H* (0.66-1.25) mg/dL Glucose 134 H (74-99) mg/dL POC Glucose (mg/dL) 143 H (75-99) mg/dL Hemoglobin A1c (4.0-6.0) % Calcium 7.4 L (8.4-10.2) mg/dL Iron (65-175) ug/dL TIBC (228-460) ug/dL Ferritin (22.0-322.0) ng/mL PTH Intact (14.0-72.0) pg/mL Hep Bs Antibody (Non-Reactive) Microbiology - Last 24 Hours (Table) 06/26/17 23:07 Blood Culture - Preliminary Blood No Growth after 48 hours 06/27/17 13:30 Gram Stain - Preliminary Heel - Left Wound Culture - Preliminary Gram Neg Bacilli Assessment and Plan Plan: # 1volume overload likely secondary to lack of dialysis for chronic kidney disease stage V - He is scheduled for hemodialysis today would like to switch to peritoneal dialysis - [employer] Financial [employer] Agent consult appreciated. Continue Lasix 80 mg IV every 8 hours - Potassium within normal limits - Patient may require daily dialysis for first few days #2 acute hypoxic respiratory failure likely secondary to volume overload and component of acute systolic heart failure -Continue Lasix, patient started on lisinopril #3 cellulitis of the left heel - Continue Rocephin. Wound culture is showing gram-negative bacilli. - Consult with Dr. Nye appreciated. Continue local wound care with [facility]. - Bone scan negative for osteomyelitis 4 hypertension currently on labetalol 200 mg twice daily, lisinopril 2.5 mg daily. Norvasc was discontinued #5 uncontrolled type 2 diabetes- patient is off insulin for the past 7 weeks, glucose between 150-170 of insulin pump, the start patient on insulin sliding scale and switch to simpler regimen with lantus and lispro on discharge - HbA1c 9.2 #6 Hypothyroidism - Continue Levothyroxine 250 mcg po daily #7 restless leg syndrome continue pramipexole 0.25 mg daily #8 metabolic acidosis likely secondary to chronic kidney disease -Continue bicarb 650 mg 3 times a day #9 gout unspecified reduce allopurinol from 100 mg twice daily to 100 mg daily colchicine held #10 depression recurrent continue duloxetine 30 mg daily #11 DVT prophylaxis with heparin 5000 mg every 12 with compression devices CODE STATUS no code Discharge plan: [place] under the care of Dr. Chirinos Impression and plan of care have been directed as dictated by the signing physician. Nasreen Ryder nurse practitioner acting as scribe for signing physician.
--- NOTE | 2017-06-29 14:45 | P.PN ---
Subjective Progress Note Date: 06/29/17 Principal diagnosis: Shortness of breath This is a 76-year-old gentleman with history of end-stage renal disease, hypertension, hyperlipidemia, diabetes, obesity, who presented to the hospital mainly with symptoms of frequent falls, he also had complaints of experiencing progressive exertional shortness of breath and had noticed swelling in bilateral legs. Morbidly obese, does have severe bilateral swelling as well as chronic skin changes. Chest x-ray on admission did reveal congestive heart failure and BNP came back to be elevated. Patient was initiated on IV Lasix. The hemoglobin was 8 on admission, 7.2 this morning. BUN 85, creatinine 5.9. Patient is scheduled to undergo dialysis today. Objective - Vital Signs Vital signs: Vital Signs Temp 97 F L 06/29/17 12:00 Pulse 66 06/29/17 12:00 Resp 16 06/29/17 12:00 BP 112/53 06/29/17 08:00 Pulse Ox 95 06/29/17 12:00 Intake & Output 06/28/17 06/29/17 06/29/17 18:59 06:59 18:59 Intake Total 858 250 Output Total 700 280 Balance 158 -280 250 Weight 149 kg 150 kg Intake: IV 10 Invasive Line 3 10 Intake, IV Titration 500 Amount Vancomycin 2,250 mg In 500 Sodium Chloride 0.9% 500 ml @ 167 mls/hr IVPB ONCE ONE Rx#:[id number] Oral 358 240 Output: Urine 700 280 Other: Voiding Method Urinal Urinal Incontinent Incontinent # Voids 1 - Exam PHYSICAL EXAMINATION: HEENT: [Head is atraumatic, normocephalic. Pupils equal, round. Neck is supple. There is no elevated jugular venous pressure.] HEART EXAMINATION: [Heart S1, S2 normal. No murmur or gallop heard.] CHEST EXAMINATION: Lungs are clear with fine crackles to bilateral bases, diminished air entry to the bases ABDOMEN: [ Soft, obese, nontender. Bowel sounds are heard. No organomegaly noted ]. EXTREMITIES:[ 1+ peripheral pulses with 3+ evidence of peripheral edema and evidence of chronic skin changes bilaterally. NEUROLOGIC [patient is awake, alert and oriented -3.] . - Labs CBC & Chem 7: 06/29/17 06:11 06/29/17 06:11 Labs: Abnormal Lab Results - Last 24 Hours (Table) 06/28/17 06/28/17 06/28/17 Range/Units 02:00 16:37 20:57 RBC (4.30-5.90) m/uL Hgb (13.0-17.5) gm/dL Hct (39.0-53.0) % MCV (80.0-100.0) fL MCHC (31.0-37.0) g/dL RDW (11.5-15.5) % Plt Count (150-450) k/uL Chloride (98-107) mmol/L Carbon Dioxide (22-30) mmol/L BUN (9-20) mg/dL Creatinine (0.66-1.25) mg/dL Glucose (74-99) mg/dL POC Glucose (mg/dL) 160 H 170 H (75-99) mg/dL Hemoglobin A1c 7.2 H (4.0-6.0) % Calcium (8.4-10.2) mg/dL 06/29/17 06/29/17 06/29/17 Range/Units 06:11 06:11 06:15 RBC 2.28 L (4.30-5.90) m/uL Hgb 7.2 L (13.0-17.5) gm/dL Hct 24.4 L (39.0-53.0) % MCV 106.9 H (80.0-100.0) fL MCHC 29.6 L (31.0-37.0) g/dL RDW 17.0 H (11.5-15.5) % Plt Count 143 L (150-450) k/uL Chloride 109 H (98-107) mmol/L Carbon Dioxide 17 L (22-30) mmol/L BUN 85 H* (9-20) mg/dL Creatinine 5.98 H* (0.66-1.25) mg/dL Glucose 134 H (74-99) mg/dL POC Glucose (mg/dL) 143 H (75-99) mg/dL Hemoglobin A1c (4.0-6.0) % Calcium 7.4 L (8.4-10.2) mg/dL 06/29/17 Range/Units 11:42 RBC (4.30-5.90) m/uL Hgb (13.0-17.5) gm/dL Hct (39.0-53.0) % MCV (80.0-100.0) fL MCHC (31.0-37.0) g/dL RDW (11.5-15.5) % Plt Count (150-450) k/uL Chloride (98-107) mmol/L Carbon Dioxide (22-30) mmol/L BUN (9-20) mg/dL Creatinine (0.66-1.25) mg/dL Glucose (74-99) mg/dL POC Glucose (mg/dL) 138 H (75-99) mg/dL Hemoglobin A1c (4.0-6.0) % Calcium (8.4-10.2) mg/dL Microbiology - Last 24 Hours (Table) 06/26/17 23:07 Blood Culture - Preliminary Blood No Growth after 48 hours Assessment and Plan Plan: Assessmen and Plan #1 systolic congestive heart failure acute on chronic #2 volume overload likely secondary to lack of dialysis, patient will be initiated on dialysis today. #3 hypertension #4 diabetes #5 hypothyroidism #6 gout #7 morbid obesity Plan Patient is scheduled to undergo dialysis today. We'll also continue current dose of IV Lasix. DNP note has been reviewed, I agree with a documented findings and plan of care. Patient was seen and examined.
[2017-06-29] MEDS: SENNOSIDES-DOCUSATE SODIUM 1 EACH TAB PO SCH ×2 (15:30→20:30)
[2017-06-29] MEDS ORDERED: DARBEPOETIN ALFA 40 MCG/0.4 ML SYRINGE SQ SCH (16:00)
[2017-06-29 16:10] LABS: Appearance,Urine Turbid (Clear); Bacteria,Urine Few /hpf; Bilirubin,Urine Negative (Negative); Glucose,Urine (UA) Negative (Negative); Ketones,Urine Negative (Negative); Leukocyte Esterase,Urine Negative (Negative); Mucus,Urine Rare /hpf; Nitrite,Urine Negative (Negative); PH, Urine 5.5 (5.0-8.0); Particle Count 6051; Protein,Urine 2+ (Negative); RBC,Urine 22 /hpf (0-5); Squamous Epithelial Cell,Urine 1 /hpf (0-4); UA Billing (MACRO vs. MICRO) MICRO; Uric Acid Crystals,Urine Many /hpf; Urobilinogen,Urine <2.0 mg/dL (<2.0)
[2017-06-29 16:30] LABS: Glucose,Whole Blood 159 mg/dL (75-99)
--- NOTE | 2017-06-29 20:19 | PN ---
PROGRESS NOTE Patient is seen for followup for end-stage renal disease. He tolerated his dialysis very well yesterday. This morning patient is seen while on hemodialysis. He is tolerating his treatment fairly well. We are going for about 3 L of ultrafiltration. EXAMINATION: Blood pressure was 112/53, heart rate 69 per minute. He is afebrile. HEART: S1, S2. LUNGS: Decreased breath sounds at bases. ABDOMEN: Soft, nontender. Morbidly obese. Lower extremities show significant chronic skin changes and edema about 2 to 3+ bilaterally. LABS: Hemoglobin was 7.2 g/dL. Potassium 4.4, sodium 139. ASSESSMENT: 1. End-stage renal disease, on hemodialysis, started yesterday. The patient has a right forearm arm arteriovenous fistula. He needs placement as outpatient. I will dialyze him again tomorrow for ultrafiltration. 2. Volume overload. Continue with the IV Lasix and repeat dialysis tomorrow with a goal ultrafiltration of about 2 to 3 L. 3. Hypertension, currently controlled. Patient is on lisinopril along with the labetalol. 4. Anemia of chronic disease. Will start Aranesp. The patient was maintained on Procrit as outpatient. 5. Left foot wound, mainly in the heel, with wound cultures growing Providencia rettgeri and possible Staphylococcus. PLAN: Continue antibiotics, repeat hemodialysis in a.m. and start Aranesp. MMODL / IJN: [id number] /
[2017-06-29] MEDS: ATORVASTATIN 40 MG TAB PO SCH (20:30)
[2017-06-29 20:53] LABS: Glucose,Whole Blood 138 mg/dL (75-99)
--- NOTE | 2017-06-29 22:06 | P.PN ---
Subjective Progress Note Date: 06/29/17 Principal diagnosis: Sepsis 76-year-old male presents to the emergency center with increasing weakness and a history of recent multiple falls. The patient's son who was present is very helpful to provide some accurate details of the recent history. The patient is unable to accurately give details. However is clear that he stop dialysis over a year ago and did not want to restart it. Usually said that he stopped it about 8 weeks ago which point in time he also stopped his insulin pump. The patient's son who is an EMS worker relates that he did stop his insulin pump within the last several weeks but stopped his dialysis, which was CAPD more than a year ago. The patient has been somewhat adamant about not want to restart dialysis of any type. Over the last week the patient has had increasing weakness. EMS was called and multiple events to pick patient up from the floor. He never any significant trauma and refused to go to the ER until the current event. At this time he has evidence of significant uremia generalized weakness and some confusion. Infectious disease consult was requested given the significant new ulceration has been noted to his left heel. As the patient has had multiple falls in they're unclear how the ulcer started. The patient relates that it's not painful. He does have neuropathy and has a history of an ulcer in the past. He has a fistula in the right wrist unclear if it is adequate for hemodialysis. The son believes a PermCath was utilized for his last type of hemodialysis and then he was on CAPD until he discontinued dialysis. It is not related that he was having fevers chills or rigors at home. Just found and increasing weakness and multiple falls. The patient has multiple bruises from his falls none of them are tender. Son relates that the patient does have urinary output and they're unaware of any significant changes except of some recent incontinence. Patient has agreed and is now receiving dialysis with hemodialysis. Seems to be tolerating this well so far. Feeling somewhat better today. Patient's son is present. Agrees he is doing better. Will be going to rehab at discharge. Objective - Vital Signs Vital signs: Vital Signs Temp 97.7 F 06/29/17 16:00 Pulse 69 06/29/17 16:00 Resp 16 06/29/17 16:00 BP 133/63 06/29/17 16:00 Pulse Ox 97 06/29/17 16:00 Intake & Output 06/29/17 06/29/17 06/30/17 06:59 18:59 06:59 Intake Total 490 Output Total 280 Balance -280 490 Weight 150 kg Intake: IV 10 Invasive Line 3 10 Oral 480 Output: Urine 280 Other: Voiding Method Urinal Urinal Incontinent Incontinent # Voids 1 - Exam 76-year-old male who is 6 foot 2 but still has significant obesity is pleasant and cooperative but has very poor recall HEENT: Anicteric conjunctiva are pink and moist nasal mucosa grossly intact without significant lesions, there is no thrush. Neck: The neck is supple without significant lymphadenopathy or thyromegaly. Lungs: There is symmetrical air entry with basilar crackles are heard no bronchial sounds Heart: Irregular with an audible S1 and S2 without S4 no distinct murmur click or rub Abdomen: Obese Positive bowel sounds soft and nontender without palpable masses or organomegaly. There was no guarding or rebound. Extremities: The upper extremity shows the IV site is intact. There is evidence of some ecchymosis on the upper extremities. Especially to the left shoulder. The lower extremities have evidence of the extensive bilateral lower extremity edema. There is extensive ulceration to the left heel which is full- thickness with fat layer exposed no bony structures involved. Serous drainage is noted. Neuro: Awake alert oriented to person and place, poor historian, able to move upper and lower extremities, decreased sensation from ankle distally bilaterally no tenderness at the ulcer site. - Labs CBC & Chem 7: 06/29/17 06:11 06/29/17 06:11 Labs: Abnormal Lab Results - Last 24 Hours (Table) 06/29/17 06/29/17 06/29/17 Range/Units 06:11 06:11 06:15 RBC 2.28 L (4.30-5.90) m/uL Hgb 7.2 L (13.0-17.5) gm/dL Hct 24.4 L (39.0-53.0) % MCV 106.9 H (80.0-100.0) fL MCHC 29.6 L (31.0-37.0) g/dL RDW 17.0 H (11.5-15.5) % Plt Count 143 L (150-450) k/uL Chloride 109 H (98-107) mmol/L Carbon Dioxide 17 L (22-30) mmol/L BUN 85 H* (9-20) mg/dL Creatinine 5.98 H* (0.66-1.25) mg/dL Glucose 134 H (74-99) mg/dL POC Glucose (mg/dL) 143 H (75-99) mg/dL Calcium 7.4 L (8.4-10.2) mg/dL Urine Protein (Negative) Urine Blood (Negative) Urine RBC (0-5) /hpf Uric Acid Crystals (None) /hpf Urine Bacteria (None) /hpf Urine Mucus (None) /hpf 06/29/17 06/29/17 06/29/17 Range/Units 11:42 15:15 16:29 RBC (4.30-5.90) m/uL Hgb (13.0-17.5) gm/dL Hct (39.0-53.0) % MCV (80.0-100.0) fL MCHC (31.0-37.0) g/dL RDW (11.5-15.5) % Plt Count (150-450) k/uL Chloride (98-107) mmol/L Carbon Dioxide (22-30) mmol/L BUN (9-20) mg/dL Creatinine (0.66-1.25) mg/dL Glucose (74-99) mg/dL POC Glucose (mg/dL) 138 H 159 H (75-99) mg/dL Calcium (8.4-10.2) mg/dL Urine Protein 2+ H (Negative) Urine Blood Moderate H (Negative) Urine RBC 22 H (0-5) /hpf Uric Acid Crystals Many H (None) /hpf Urine Bacteria Few H (None) /hpf Urine Mucus Rare H (None) /hpf 06/29/17 Range/Units 20:47 RBC (4.30-5.90) m/uL Hgb (13.0-17.5) gm/dL Hct (39.0-53.0) % MCV (80.0-100.0) fL MCHC (31.0-37.0) g/dL RDW (11.5-15.5) % Plt Count (150-450) k/uL Chloride (98-107) mmol/L Carbon Dioxide (22-30) mmol/L BUN (9-20) mg/dL Creatinine (0.66-1.25) mg/dL Glucose (74-99) mg/dL POC Glucose (mg/dL) 138 H (75-99) mg/dL Calcium (8.4-10.2) mg/dL Urine Protein (Negative) Urine Blood (Negative) Urine RBC (0-5) /hpf Uric Acid Crystals (None) /hpf Urine Bacteria (None) /hpf Urine Mucus (None) /hpf Microbiology - Last 24 Hours (Table) 06/27/17 13:30 Gram Stain - Preliminary Heel - Left Wound Culture - Preliminary Providencia rettgeri Presumptive Staph aureus 06/26/17 23:07 Blood Culture - Preliminary Blood No Growth after 48 hours Laboratory Results WBC 5.0 k/uL (3.8-10.6) 06/29/17 06:11 RBC 2.28 m/uL (4.30-5.90) L 06/29/17 06:11 Hgb 7.2 gm/dL (13.0-17.5) L 06/29/17 06:11 Hct 24.4 % (39.0-53.0) L 06/29/17 06:11 MCV 106.9 fL (80.0-100.0) H 06/29/17 06:11 MCH 31.6 pg (25.0-35.0) 06/29/17 06:11 MCHC 29.6 g/dL (31.0-37.0) L 06/29/17 06:11 RDW 17.0 % (11.5-15.5) H 06/29/17 06:11 Plt Count 143 k/uL (150-450) L 06/29/17 06:11 Neutrophils % 80 % 06/26/17 23:07 Lymphocytes % 5 % 06/26/17 23:07 Monocytes % 7 % 06/26/17 23:07 Eosinophils % 6 % 06/26/17 23:07 Basophils % 1 % 06/26/17 23:07 Neutrophils # 3.8 k/uL (1.3-7.7) 06/26/17 23:07 Lymphocytes # 0.3 k/uL (1.0-4.8) L 06/26/17 23:07 Monocytes # 0.3 k/uL (0-1.0) 06/26/17 23:07 Eosinophils # 0.3 k/uL (0-0.7) 06/26/17 23:07 Basophils # 0.0 k/uL (0-0.2) 06/26/17 23:07 Hypochromasia Marked 06/29/17 06:11 Anisocytosis Slight 06/29/17 06:11 Macrocytosis Marked 06/29/17 06:11 PT 12.1 sec (9.0-12.0) H 06/26/17 23:07 INR 1.2 (<1.2) H 06/26/17 23:07 APTT 26.5 sec (22.0-30.0) 06/26/17 23:07 Sodium 139 mmol/L (137-145) 06/29/17 06:11 Potassium 4.4 mmol/L (3.5-5.1) 06/29/17 06:11 Chloride 109 mmol/L (98-107) H 06/29/17 06:11 Carbon Dioxide 17 mmol/L (22-30) L 06/29/17 06:11 Anion Gap 13 mmol/L 06/29/17 06:11 BUN 85 mg/dL (9-20) H* 06/29/17 06:11 Creatinine 5.98 mg/dL (0.66-1.25) H* 06/29/17 06:11 Est GFR (MDRD) Af Amer 11 (>60 ml/min/1.73 sqM) 06/29/17 06:11 Est GFR (MDRD) Non-Af 9 (>60 ml/min/1.73 sqM) 06/29/17 06:11 Glucose 134 mg/dL (74-99) H 06/29/17 06:11 POC Glucose (mg/dL) 138 mg/dL (75-99) H 06/29/17 20:47 POC Glu Lead Clinical Research Coordinator Haritha Gonsalves 06/29/17 20:[address] Glu mg/dL 160 06/28/17 02:00 Hemoglobin A1c 7.2 % (4.0-6.0) H 06/28/17 02:00 Plasma Lactic Acid Levi 1.3 mmol/L (0.7-2.0) 06/26/17 23:07 Calcium 7.4 mg/dL (8.4-10.2) L 06/29/17 06:11 Phosphorus 8.3 mg/dL (2.5-4.5) H* 06/28/17 02:00 Iron 45 ug/dL (65-175) L 06/28/17 05:44 TIBC 198 ug/dL (228-460) L 06/28/17 05:44 Iron Saturation 22.73 (15.00-50.00) 06/28/17 05:44 Ferritin 825.9 ng/mL (22.0-322.0) H 06/28/17 05:44 Total Bilirubin 0.2 mg/dL (0.2-1.3) 06/26/17 23:07 AST 18 U/L (17-59) 06/26/17 23:07 ALT 36 U/L (21-72) 06/26/17 23:07 Alkaline Phosphatase 88 U/L (38-126) 06/26/17 23:07 Troponin I 0.078 ng/mL (0.000-0.034) H* 06/28/17 01:54 NT-Pro-B Natriuret Pep 91813 pg/mL 06/26/17 23:07 Total Protein 6.0 g/dL (6.3-8.2) L 06/26/17 23:07 Albumin 3.3 g/dL (3.5-5.0) L 06/26/17 23:07 PTH Intact 314.9 pg/mL (14.0-72.0) H 06/28/17 05:44 Urine Color Yellow 06/29/17 15:15 Urine Appearance Turbid (Clear) 06/29/17 15:15 Urine pH 5.5 (5.0-8.0) 06/29/17 15:15 Ur Specific Lincoln 1.010 (1.001-1.035) 06/29/17 15:15 Urine Protein 2+ (Negative) H 06/29/17 15:15 Urine Glucose (UA) Negative (Negative) 06/29/17 15:15 Urine Ketones Negative (Negative) 06/29/17 15:15 Urine Blood Moderate (Negative) H 06/29/17 15:15 Urine Nitrite Negative (Negative) 06/29/17 15:15 Urine Bilirubin Negative (Negative) 06/29/17 15:15 Urine Urobilinogen <2.0 mg/dL (<2.0) 06/29/17 15:15 Ur Leukocyte Esterase Negative (Negative) 06/29/17 15:15 Urine RBC 22 /hpf (0-5) H 06/29/17 15:15 Ur Squamous Epith Cells 1 /hpf (0-4) 06/29/17 15:15 Uric Acid Crystals Many /hpf (None) H 06/29/17 15:15 Urine Bacteria Few /hpf (None) H 06/29/17 15:15 Hyaline Casts 1 /lpf (0-2) 06/29/17 15:15 Urine Mucus Rare /hpf (None) H 06/29/17 15:15 Random Vancomycin 20.9 ug/mL 06/29/17 06:11 Hep Bs Antigen Non-Reactive (Non-Reactive) 06/28/17 05:44 Hep Bs Antibody Equivocal (Non-Reactive) H 06/28/17 05:44 Hep Bs Antibody, Quant 10.6 mIU/mL 06/28/17 05:44 Microbiology 06/27/17 13:30 Heel - Left Gram Stain - Preliminary 06/27/17 13:30 Heel - Left Wound Culture - Preliminary Providencia rettgeri Presumptive Staph aureus 06/26/17 23:07 Blood Blood Culture - Preliminary No Growth after 48 hours - Imaging and Cardiology Bone scan is negative for osteomyelitis Assessment and Plan (1) Acute exacerbation of CHF (congestive heart failure) Current Visit: Yes Status: Acute Code(s): I50.9 - HEART FAILURE, UNSPECIFIED SNOMED Code(s): 19593769 (2) 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 The patient has had progressive decline of his status especially the last short period of time. The patient discontinued his insulin pump. He now has uncontrolled diabetes. He has marked worsening of his renal failure and has evidence of uremia with increasing weakness and multiple falls. The patient's family is present and are aware of the situation. The patient has now agreed to hemodialysis which has been started. He certainly feels somewhat better. Heart failure is being treated. The ulcer will be treated with antibiotic therapy including vancomycin and Rocephin is added for gram-negative coverage. The patient does have a penicillin ALLERGY of undetermined significance. Wound cultures obtained which will further help direct antimicrobial therapy. Local wound care has been requested with medical honey and ABDs to absorb the somewhat copious drainage. Depending on the plan will determine if he needs an extensive debridement. X-ray has failed reveal evidence of underlying bony infection. Bone scan does not reveal evidence of osteomyelitis Otherwise agreed to hemodialysis and further aggressive therapy will continue current workup. Protein supplementation and vitamin is given. Wound culture with gram-positive cocci and on vancomycin, gram-negative bacilli and Rocephin has been ordered and will be monitored. Current Visit: Yes Status: Acute Code(s): E11.621 - TYPE 2 DIABETES MELLITUS WITH FOOT ULCER; L97.522 - NON-PRS CHRONIC ULCER OTH PRT LEFT FOOT W FAT LAYER EXPOSED SNOMED Code(s): 069888457 (3) Diabetes type 2, uncontrolled Current Visit: No Status: Acute Code(s): E11.65 - TYPE 2 DIABETES MELLITUS WITH HYPERGLYCEMIA SNOMED Code(s): 57884337 (4) Chronic renal failure Current Visit: Yes Status: Acute Code(s): N18.9 - CHRONIC KIDNEY DISEASE, UNSPECIFIED SNOMED Code(s): 12947092
[2017-06-30] MEDS ORDERED: VANCOMYCIN 2,000 MG in SODIUM CHLORIDE 0.9% 500 ML IVPB ONE (06:00)
[2017-06-30 06:16] LABS: Glucose,Whole Blood 154 mg/dL (75-99)
[2017-06-30] MEDS: INSULIN LISPRO (humaLOG) 300 UNIT/3 ML VIAL SQ SCH ×2 (06:18→12:30)
[2017-06-30] MEDS: LEVOTHYROXINE 125 MCG TAB PO SCH (06:19)
[2017-06-30] MEDS: SEVELAMER 800 MG TAB PO SCH ×3 (06:19→17:32)
[2017-06-30 06:22] LABS: Anisocytosis Slight; CHCM 30.9; HCT 23.3 % (39.0-53.0); HDW 2.98; HGB 7.1 gm/dL (13.0-17.5); Hypochromasia Moderate; MCH 32.1 pg (25.0-35.0); MCHC 30.7 g/dL (31.0-37.0); MCV 104.6 fL (80.0-100.0); Macrocytosis Moderate; Mean Platelet Volume 9.2; RBC 2.22 m/uL (4.30-5.90); RDW 17.1 % (11.5-15.5); WBC 5.3 k/uL (3.8-10.6)
[2017-06-30 06:41] LABS: Calcium 7.4 mg/dL (8.4-10.2); Phosphorus 5.8 mg/dL (2.5-4.5)
[2017-06-30 11:41] LABS: Glucose,Whole Blood 196 mg/dL (75-99)
[2017-06-30] MEDS: cefTRIAXone IN SWFI 1,000 MG/10 ML SYRINGE IVP SCH (12:29)
[2017-06-30] MEDS: FUROSEMIDE 10 MG/ML 10 ML VIAL IV SCH ×2 (12:29→17:30)
[2017-06-30] MEDS: HEPARIN SODIUM,PORCINE 5,000 UNIT/ML 1 ML VIAL SQ SCH ×2 (12:31→20:20)
[2017-06-30] MEDS: LABETALOL 200 MG TAB PO SCH ×2 (12:32→20:20)
[2017-06-30] MEDS: ALLOPURINOL 100 MG TAB PO SCH ×2 (12:32→20:20)
[2017-06-30] MEDS: LISINOPRIL 2.5 MG TAB PO SCH (12:32)
[2017-06-30] MEDS: SODIUM BICARBONATE TAB 650 MG TAB PO SCH ×3 (12:32→21:15)
[2017-06-30] MEDS: DULoxetine HCL 30 MG CAPSULE.DR PO SCH (12:32)
[2017-06-30] MEDS: ASPIRIN 325 MG TAB PO SCH (12:33)
[2017-06-30] MEDS: ASCORBIC ACID 500 MG TAB PO SCH (12:33)
[2017-06-30] MEDS: SENNOSIDES-DOCUSATE SODIUM 1 EACH TAB PO SCH ×2 (12:33→20:20)
[2017-06-30] MEDS: PRAMIPEXOLE 0.25 MG TAB PO SCH (12:34)
--- NOTE | 2017-06-30 14:47 | P.PN ---
Subjective Progress Note Date: 06/30/17 This is a 73-year-old gentleman patient of Dr. Chirinos a previous medical history significant for chronic multiple medical problems including hypertension and hypertensive cardiovascular disease, diabetes mellitus type 2 was on insulin pump ( stopped 7 weeks ago ) , diabetic polyneuropathy, diabetic retinopathy, end stage renal disease was on hemodialysis status post right forearm AV fistula, followed by peritoneal dialysis with a CAPD at home which he stopped doing to 1 year ago, history of hyperlipidemia, history of super morbid obesity with obstructive sleep apnea as well as obesity hypoventilation syndrome, patient was last hospitalized in 2013 for a colitis and peritonitis requiring antibiotics. Patient was doing well until one week ago when he started having frequent falls. Patient fell 5 times in the past week. According to the son at bedside , patient stopped dialysis 1 year ago as he lost hope in recovery. According to the patient, he was seen by a route delivery manager who recommended patient going off dialysis for 2 weeks but he did not see the route delivery manager as he moved from [place]. Since then patient has been adamant about not starting dialysis and continuing Lasix and Bumex as outpatient. Patient was initially on hemodialysis but then went on to peritoneal dialysis for 3 years before going off dialysis in September 2014. Patient is making good urine output on the diuretics. Patient had multiple falls during the past week which appears to be mechanical as patient states that he did not lose consciousness. Patient denies dizziness, seizures or balance abnormality. He states he feels heavy in his legs and his left knee just gave away. He also has noticed worsening shortness of breath on exertion with worsening lower extremity edema and nonhealing wound on his left heel since Wednesday. Patient states he did not notice the wound before. He came to the hospital with a creatinine of 6.7(his last outpatient creatinine was 4.55 in December 2016) and a BUN 108. Patient's bicarb was 11, potassium was within normal limits. Hemoglobin 8 and BNP 34, 800. X-ray of the left knee suggested advanced osteoarthritis. X-ray of left foot suggested significant soft tissue swelling in the forefoot but no focal destruction suggesting of osteo-mellitus. Chest x-ray suggestive of cardiomegaly with pulmonary vascularity suggestive of mild heart failure. Echo Was ordered. 06/28: Patient has been seen in consultation by Dr. Nye with recommendations for antibiotics in the form of vancomycin and Rocephin with local wound care of [facility] and [facility] to absorb drainage. Bone scan ordered today. Echocardiogram reveals borderline concentric left ventricular hypertrophy, EF 30 -35%, mild mitral regurgitation, tricuspid regurgitation, moderate pulmonary hypertension, left atrium moderately dilated, right ventricle severely enlarged , LV wall motion akinetic. Cardiology has discontinued Norvasc and started him on PHILLIP inhibitor and continued labetalol. Patient is followed by nephrology. He is continued on Lasix 80 mg IV 3 times daily, sodium bicarb. Hemodialysis as scheduled for today. 06/29: Bone scan showed no evidence of osteomyelitis. Patient is to have repeat hemodialysis today. He remains in fluid overload. Wound culture from the left heel is showing gram-negative bacilli. Patient is continued on ceftriaxone and vancomycin. Patient states his breathing is better today. He has a little nonproductive cough. Last BM Wednesday for which stool softener will be added. 06/30: 11.1, BUN 74 and creatinine 5.01. Phosphorus is down to 5.8. He underwent dialysis today as well. He is continued on IV Lasix 80 mg every 8 hours. Antibiotics are Rocephin and vancomycin. Wound culture is Providencia rettgeri susceptible to ceftriaxone. There is also a MSSA. Patient was a 3 person assist to get to the chair. He continues to have some slight wheezing. Patient will be transferred to [facility] floor today. Anticipate discharge to [facility] tomorrow. Nursing to clarify with Dr. Devi if IV Lasix can be changed to oral. Objective - Vital Signs Vital signs: Vital Signs Temp 98.0 F 06/30/17 03:29 Pulse 69 06/30/17 03:29 Resp 20 06/30/17 03:29 BP 114/57 06/30/17 03:29 Pulse Ox 96 06/30/17 03:29 Intake & Output 06/29/17 06/30/17 06/30/17 18:59 06:59 18:59 Intake Total 490 100 Output Total 625 Balance 490 -525 Weight 147.5 kg Intake: IV 10 Invasive Line 3 10 Oral 480 100 Output: Urine 625 Other: Voiding Method Urinal Urinal Incontinent - Exam General appearance: mild distress, obese - EENT Eyes: EOMI, PERRLA, no photophobia, dentition normal ENT: hearing grossly normal, no pharyngeal erythema, no tonsillar exudates Ears: bilateral: normal - Neck Neck: no lymphadenopathy, normal ROM, no rigidity Carotids: bilateral: upstroke normal Thyroid: bilateral: normal size - Respiratory Respiratory: bilateral: diminished, dullness, rales, rhonchi, negative: wheezing , prolonged expiration, prolonged inspiration - Cardiovascular Rhythm: regular Heart sounds: normal: S1, S2 Abnormal Heart Sounds: systolic murmur, no diastolic murmur, no rub systolic murmur (1) Type: holo leg Peripheral Edema: bilateral: 3+, Pitting - Gastrointestinal General gastrointestinal: distended, no hepatomegaly, normal bowel sounds, soft , no splenomegaly - Integumentary Integumentary: decreased turgor, ulcer (left heel ulcer with superficial skin sloughing, purulent drainage, surrounding erythema, not warm to touch. Chronic venous stasis bilaterally) - Neurologic Neurologic: CNII-XII intact - Musculoskeletal Musculoskeletal: generalized weakness, strength equal bilaterally - Psychiatric Psychiatric: no appropriate affect (Depressed about recent demise of a friend in dialysis ) - Labs CBC & Chem 7: 06/30/17 05:58 06/30/17 05:58 Labs: Abnormal Lab Results - Last 24 Hours (Table) 06/29/17 06/29/17 06/29/17 Range/Units 11:42 15:15 16:29 RBC (4.30-5.90) m/uL Hgb (13.0-17.5) gm/dL Hct (39.0-53.0) % MCV (80.0-100.0) fL MCHC (31.0-37.0) g/dL RDW (11.5-15.5) % Plt Count (150-450) k/uL Chloride (98-107) mmol/L Carbon Dioxide (22-30) mmol/L BUN (9-20) mg/dL Creatinine (0.66-1.25) mg/dL Glucose (74-99) mg/dL POC Glucose (mg/dL) 138 H 159 H (75-99) mg/dL Calcium (8.4-10.2) mg/dL Phosphorus (2.5-4.5) mg/dL Urine Protein 2+ H (Negative) Urine Blood Moderate H (Negative) Urine RBC 22 H (0-5) /hpf Uric Acid Crystals Many H (None) /hpf Urine Bacteria Few H (None) /hpf Urine Mucus Rare H (None) /hpf 06/29/17 06/30/17 06/30/17 Range/Units 20:47 05:58 05:58 RBC 2.22 L (4.30-5.90) m/uL Hgb 7.1 L (13.0-17.5) gm/dL Hct 23.3 L (39.0-53.0) % MCV 104.6 H (80.0-100.0) fL MCHC 30.7 L (31.0-37.0) g/dL RDW 17.1 H (11.5-15.5) % Plt Count 146 L (150-450) k/uL Chloride 108 H (98-107) mmol/L Carbon Dioxide 18 L (22-30) mmol/L BUN 74 H (9-20) mg/dL Creatinine 5.01 H* (0.66-1.25) mg/dL Glucose 140 H (74-99) mg/dL POC Glucose (mg/dL) 138 H (75-99) mg/dL Calcium 7.4 L (8.4-10.2) mg/dL Phosphorus 5.8 H (2.5-4.5) mg/dL Urine Protein (Negative) Urine Blood (Negative) Urine RBC (0-5) /hpf Uric Acid Crystals (None) /hpf Urine Bacteria (None) /hpf Urine Mucus (None) /hpf 06/30/17 Range/Units 06:14 RBC (4.30-5.90) m/uL Hgb (13.0-17.5) gm/dL Hct (39.0-53.0) % MCV (80.0-100.0) fL MCHC (31.0-37.0) g/dL RDW (11.5-15.5) % Plt Count (150-450) k/uL Chloride (98-107) mmol/L Carbon Dioxide (22-30) mmol/L BUN (9-20) mg/dL Creatinine (0.66-1.25) mg/dL Glucose (74-99) mg/dL POC Glucose (mg/dL) 154 H (75-99) mg/dL Calcium (8.4-10.2) mg/dL Phosphorus (2.5-4.5) mg/dL Urine Protein (Negative) Urine Blood (Negative) Urine RBC (0-5) /hpf Uric Acid Crystals (None) /hpf Urine Bacteria (None) /hpf Urine Mucus (None) /hpf Microbiology - Last 24 Hours (Table) 06/26/17 23:07 Blood Culture - Preliminary Blood No Growth after 72 hours 06/27/17 13:30 Gram Stain - Preliminary Heel - Left Wound Culture - Preliminary Providencia rettgeri Presumptive Staph aureus Assessment and Plan Plan: # 1volume overload likely secondary to lack of dialysis for chronic kidney disease stage V - He is scheduled for hemodialysis today would like to switch to peritoneal dialysis - Disability Attorney consult appreciated. Continue Lasix 80 mg IV every 8 hours - Potassium within normal limits - Patient may require daily dialysis for first few days #2 acute hypoxic respiratory failure likely secondary to volume overload and component of acute systolic heart failure -Continue Lasix, patient started on lisinopril #3 cellulitis of the left heel - Continue Rocephin and vancomycin. Wound culture is growing Providencia rettgeri susceptible to ceftriaxone. There is also a presumptive staph aureus. - Consult with Dr. Nye appreciated. Continue local wound care with [facility]. - Bone scan negative for osteomyelitis 4 hypertension currently on labetalol 200 mg twice daily, lisinopril 2.5 mg daily. Norvasc was discontinued #5 uncontrolled type 2 diabetes- patient is off insulin for the past 7 weeks, glucose between 150-170 of insulin pump, the start patient on insulin sliding scale and switch to simpler regimen with lantus and lispro on discharge - HbA1c 9.2 #6 Hypothyroidism - Continue Levothyroxine 250 mcg po daily #7 restless leg syndrome continue pramipexole 0.25 mg daily #8 metabolic acidosis likely secondary to chronic kidney disease -Continue bicarb 650 mg 3 times a day #9 gout unspecified reduce allopurinol from 100 mg twice daily to 100 mg daily colchicine held #10 depression recurrent continue duloxetine 30 mg daily #11 DVT prophylaxis with heparin 5000 mg every 12 with compression devices CODE STATUS no code Discharge plan: Sa[place] under the care of Dr. Chirinos on Impression and plan of care have been directed as dictated by the signing physician. Nasreen Ryder nurse practitioner acting as scribe for signing physician.
--- NOTE | 2017-06-30 15:01 | PN ---
PROGRESS NOTE The patient is seen for followup for end-stage renal disease. He is seen on hemodialysis, tolerating his treatment well. Goal UF is about 2.5 L. Patient is awaiting for chair placement. PHYSICAL EXAMINATION: Blood pressure is 153/67, heart rate 96 per minute. He is afebrile. Examination of the heart S1, S2. Examination of the lungs breath sounds are heard. Abdomen is soft, nontender. Examination of abdomen is soft morbidly obese. Examination lower extremity shows edema 2 to 3+ bilaterally with chronic skin changes. LABORATORY DATA: Sodium 139, potassium 4.0, hemoglobin 7.1 g/dl. ASSESSMENT: 1. End-stage renal disease, on hemodialysis on by an right forearm AV fistula. 2. Anemia of chronic disease. No active bleeding noted maintained on Aranesp. 3. Fluid overload the patient has had 3 consecutive hemodialysis treatments and UF total about 6-7 L. 4. Left knee wound maintained on Rocephin. PLAN: Patient can be discharged once he he is set up for outpatient dialysis. MMODL / IJN: [id number] /
[2017-06-30] MEDS: ALBUTEROL NEBULIZED 2.5 MG/3 ML INHALATION SCH ×2 (16:51→21:17)
[2017-06-30] MEDS: IPRATROPIUM 0.5 MG/2.5 ML NEBU INHALATION SCH ×2 (16:52→21:18)
[2017-06-30 17:36] LABS: Glucose,Whole Blood 166 mg/dL (75-99)
[2017-06-30] MEDS: INSULIN ASPART 100 UNIT/ML 1 ML 10 ML VIAL SQ SCH ×2 (17:36→21:15)
[2017-06-30] MEDS: BUMETANIDE 1 MG TAB PO SCH (20:20)
[2017-06-30] MEDS: ATORVASTATIN 40 MG TAB PO SCH (20:20)
[2017-06-30 20:53] LABS: Glucose,Whole Blood 179 mg/dL (75-99)
--- NOTE | 2017-06-30 21:35 | P.PN ---
Subjective Progress Note Date: 06/30/17 Principal diagnosis: Sepsis 76-year-old male presents to the emergency center with increasing weakness and a history of recent multiple falls. The patient's son who was present is very helpful to provide some accurate details of the recent history. The patient is unable to accurately give details. However is clear that he stop dialysis over a year ago and did not want to restart it. Usually said that he stopped it about 8 weeks ago which point in time he also stopped his insulin pump. The patient's son who is an EMS worker relates that he did stop his insulin pump within the last several weeks but stopped his dialysis, which was CAPD more than a year ago. The patient has been somewhat adamant about not want to restart dialysis of any type. Over the last week the patient has had increasing weakness. EMS was called and multiple events to pick patient up from the floor. He never any significant trauma and refused to go to the ER until the current event. At this time he has evidence of significant uremia generalized weakness and some confusion. Infectious disease consult was requested given the significant new ulceration has been noted to his left heel. As the patient has had multiple falls in they're unclear how the ulcer started. The patient relates that it's not painful. He does have neuropathy and has a history of an ulcer in the past. He has a fistula in the right wrist unclear if it is adequate for hemodialysis. The son believes a PermCath was utilized for his last type of hemodialysis and then he was on CAPD until he discontinued dialysis. It is not related that he was having fevers chills or rigors at home. Just found and increasing weakness and multiple falls. The patient has multiple bruises from his falls none of them are tender. Son relates that the patient does have urinary output and they're unaware of any significant changes except of some recent incontinence. Patient has agreed and is now receiving dialysis with hemodialysis. Seems to be tolerating this well so far. Feeling somewhat better today. Will be going to rehab at discharge. The bone scan is negative for osteomyelitis. Objective - Vital Signs Vital signs: Vital Signs Temp 97.3 F L 06/30/17 20:15 Pulse 72 06/30/17 21:23 Resp 20 06/30/17 20:15 BP 134/61 06/30/17 20:15 Pulse Ox 94 L 11/08/17 20:15 Intake & Output 06/30/17 06/30/17 07/01/17 06:59 18:59 06:59 Intake Total 100 598 0 Output Total 625 100 Balance -525 598 -100 Weight 147.5 kg Intake: Oral 100 598 0 Output: Urine 625 100 Other: Voiding Method Urinal Urinal Urinal - Exam 76-year-old male who is 6 foot 2 but still has significant obesity is pleasant and cooperative but has very poor recall HEENT: Anicteric conjunctiva are pink and moist nasal mucosa grossly intact without significant lesions, there is no thrush. Neck: The neck is supple without significant lymphadenopathy or thyromegaly. Lungs: There is symmetrical air entry with basilar crackles are heard no bronchial sounds Heart: Irregular with an audible S1 and S2 without S4 no distinct murmur click or rub Abdomen: Obese Positive bowel sounds soft and nontender without palpable masses or organomegaly. There was no guarding or rebound. Extremities: The upper extremity shows the IV site is intact. There is evidence of some ecchymosis on the upper extremities. Especially to the left shoulder. The lower extremities have evidence of the extensive bilateral lower extremity edema. There is ulceration to the left heel which is full-thickness with fat layer exposed no bony structures involved. Serous drainage is noted. Neuro: Awake alert oriented to person and place, poor historian, able to move upper and lower extremities, decreased sensation from ankle distally bilaterally no tenderness at the ulcer site. - Labs CBC & Chem 7: 06/30/17 05:58 06/30/17 05:58 Labs: Abnormal Lab Results - Last 24 Hours (Table) 06/30/17 06/30/17 06/30/17 Range/Units 05:58 05:58 06:14 RBC 2.22 L (4.30-5.90) m/uL Hgb 7.1 L (13.0-17.5) gm/dL Hct 23.3 L (39.0-53.0) % MCV 104.6 H (80.0-100.0) fL MCHC 30.7 L (31.0-37.0) g/dL RDW 17.1 H (11.5-15.5) % Plt Count 146 L (150-450) k/uL Chloride 108 H (98-107) mmol/L Carbon Dioxide 18 L (22-30) mmol/L BUN 74 H (9-20) mg/dL Creatinine 5.01 H* (0.66-1.25) mg/dL Glucose 140 H (74-99) mg/dL POC Glucose (mg/dL) 154 H (75-99) mg/dL Calcium 7.4 L (8.4-10.2) mg/dL Phosphorus 5.8 H (2.5-4.5) mg/dL 06/30/17 06/30/17 06/30/17 Range/Units 11:40 16:57 20:52 RBC (4.30-5.90) m/uL Hgb (13.0-17.5) gm/dL Hct (39.0-53.0) % MCV (80.0-100.0) fL MCHC (31.0-37.0) g/dL RDW (11.5-15.5) % Plt Count (150-450) k/uL Chloride (98-107) mmol/L Carbon Dioxide (22-30) mmol/L BUN (9-20) mg/dL Creatinine (0.66-1.25) mg/dL Glucose (74-99) mg/dL POC Glucose (mg/dL) 196 H 166 H 179 H (75-99) mg/dL Calcium (8.4-10.2) mg/dL Phosphorus (2.5-4.5) mg/dL Microbiology - Last 24 Hours (Table) 06/27/17 13:30 Gram Stain - Final Heel - Left Wound Culture - Final Providencia rettgeri Staphylococcus aureus 06/26/17 23:07 Blood Culture - Preliminary Blood No Growth after 72 hours Laboratory Results WBC 5.3 k/uL (3.8-10.6) 06/30/17 05:58 RBC 2.22 m/uL (4.30-5.90) L 06/30/17 05:58 Hgb 7.1 gm/dL (13.0-17.5) L 06/30/17 05:58 Hct 23.3 % (39.0-53.0) L 06/30/17 05:58 MCV 104.6 fL (80.0-100.0) H 06/30/17 05:58 MCH 32.1 pg (25.0-35.0) 06/30/17 05:58 MCHC 30.7 g/dL (31.0-37.0) L 06/30/17 05:58 RDW 17.1 % (11.5-15.5) H 06/30/17 05:58 Plt Count 146 k/uL (150-450) L 06/30/17 05:58 Neutrophils % 80 % 06/26/17 23:07 Lymphocytes % 5 % 06/26/17 23:07 Monocytes % 7 % 06/26/17 23:07 Eosinophils % 6 % 06/26/17 23:07 Basophils % 1 % 06/26/17 23:07 Neutrophils # 3.8 k/uL (1.3-7.7) 06/26/17 23:07 Lymphocytes # 0.3 k/uL (1.0-4.8) L 06/26/17 23:07 Monocytes # 0.3 k/uL (0-1.0) 06/26/17 23:07 Eosinophils # 0.3 k/uL (0-0.7) 06/26/17 23:07 Basophils # 0.0 k/uL (0-0.2) 06/26/17 23:07 Hypochromasia Moderate 06/30/17 05:58 Anisocytosis Slight 06/30/17 05:58 Macrocytosis Moderate 06/30/17 05:58 PT 12.1 sec (9.0-12.0) H 06/26/17 23:07 INR 1.2 (<1.2) H 06/26/17 23:07 APTT 26.5 sec (22.0-30.0) 06/26/17 23:07 Sodium 139 mmol/L (137-145) 06/30/17 05:58 Potassium 4.0 mmol/L (3.5-5.1) 06/30/17 05:58 Chloride 108 mmol/L (98-107) H 06/30/17 05:58 Carbon Dioxide 18 mmol/L (22-30) L 06/30/17 05:58 Anion Gap 13 mmol/L 06/30/17 05:58 BUN 74 mg/dL (9-20) H 06/30/17 05:58 Creatinine 5.01 mg/dL (0.66-1.25) H* 06/30/17 05:58 Est GFR (MDRD) Af Amer 14 (>60 ml/min/1.73 sqM) 06/30/17 05:58 Est GFR (MDRD) Non-Af 11 (>60 ml/min/1.73 sqM) 06/30/17 05:58 Glucose 140 mg/dL (74-99) H 06/30/17 05:58 POC Glucose (mg/dL) 179 mg/dL (75-99) H 06/30/17 20:52 POC Glu Tsa Screener Go [place] 06/30/17 20:[address] Glu mg/dL 160 06/28/17 02:00 Hemoglobin A1c 7.2 % (4.0-6.0) H 06/28/17 02:00 Plasma Lactic Acid Levi 1.3 mmol/L (0.7-2.0) 06/26/17 23:07 Calcium 7.4 mg/dL (8.4-10.2) L 06/30/17 05:58 Phosphorus 5.8 mg/dL (2.5-4.5) H 06/30/17 05:58 Iron 45 ug/dL (65-175) L 06/28/17 05:44 TIBC 198 ug/dL (228-460) L 06/28/17 05:44 Iron Saturation 22.73 (15.00-50.00) 06/28/17 05:44 Ferritin 825.9 ng/mL (22.0-322.0) H 06/28/17 05:44 Total Bilirubin 0.2 mg/dL (0.2-1.3) 06/26/17 23:07 AST 18 U/L (17-59) 06/26/17 23:07 ALT 36 U/L (21-72) 06/26/17 23:07 Alkaline Phosphatase 88 U/L (38-126) 06/26/17 23:07 Troponin I 0.078 ng/mL (0.000-0.034) H* 06/28/17 01:54 NT-Pro-B Natriuret Pep 69998 pg/mL 06/26/17 23:07 Total Protein 6.0 g/dL (6.3-8.2) L 06/26/17 23:07 Albumin 3.3 g/dL (3.5-5.0) L 06/26/17 23:07 PTH Intact 314.9 pg/mL (14.0-72.0) H 06/28/17 05:44 Urine Color Yellow 06/29/17 15:15 Urine Appearance Turbid (Clear) 06/29/17 15:15 Urine pH 5.5 (5.0-8.0) 06/29/17 15:15 Ur Specific [place] 1.010 (1.001-1.035) 06/29/17 15:15 Urine Protein 2+ (Negative) H 06/29/17 15:15 Urine Glucose (UA) Negative (Negative) 06/29/17 15:15 Urine Ketones Negative (Negative) 06/29/17 15:15 Urine Blood Moderate (Negative) H 06/29/17 15:15 Urine Nitrite Negative (Negative) 06/29/17 15:15 Urine Bilirubin Negative (Negative) 06/29/17 15:15 Urine Urobilinogen <2.0 mg/dL (<2.0) 06/29/17 15:15 Ur Leukocyte Esterase Negative (Negative) 06/29/17 15:15 Urine RBC 22 /hpf (0-5) H 06/29/17 15:15 Ur Squamous Epith Cells 1 /hpf (0-4) 06/29/17 15:15 Uric Acid Crystals Many /hpf (None) H 06/29/17 15:15 Urine Bacteria Few /hpf (None) H 06/29/17 15:15 Hyaline Casts 1 /lpf (0-2) 06/29/17 15:15 Urine Mucus Rare /hpf (None) H 06/29/17 15:15 Random Vancomycin 20.9 ug/mL 06/29/17 06:11 Hep Bs Antigen Non-Reactive (Non-Reactive) 06/28/17 05:44 Hep Bs Antibody Equivocal (Non-Reactive) H 06/28/17 05:44 Hep Bs Antibody, Quant 10.6 mIU/mL 06/28/17 05:44 Microbiology 06/27/17 13:30 Heel - Left Gram Stain - Final 06/27/17 13:30 Heel - Left Wound Culture - Final Providencia rettgeri Staphylococcus aureus 06/26/17 23:07 Blood Blood Culture - Preliminary No Growth after 72 hours Assessment and Plan (1) Acute exacerbation of CHF (congestive heart failure) Current Visit: Yes Status: Acute Code(s): I50.9 - HEART FAILURE, UNSPECIFIED SNOMED Code(s): 67128561 (2) 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 The patient has had progressive decline of his status especially the last short period of time. The patient discontinued his insulin pump. He now has uncontrolled diabetes. He has marked worsening of his renal failure and has evidence of uremia with increasing weakness and multiple falls. The patient's family is present and are aware of the situation. The patient has now agreed to hemodialysis which has been started. He certainly feels somewhat better. Heart failure is being treated. The ulcer will be treated with antibiotic therapy including vancomycin and Rocephin is added for gram-negative coverage. The patient does have a penicillin ALLERGY of undetermined significance. Wound cultures obtained which will further help direct antimicrobial therapy. Local wound care has been requested with medical honey and ABDs to absorb the somewhat copious drainage. Depending on the plan will determine if he needs an extensive debridement. X-ray has failed reveal evidence of underlying bony infection. Bone scan does not reveal evidence of osteomyelitis Otherwise agreed to hemodialysis and further aggressive therapy will continue current workup. Protein supplementation and vitamin is given. The wound culture is now finalized. Providentia and MSSA have been isolated. Vancomycin is discontinued. He is following with nephrology and likely will be ready for transfer soon. Oral antibiotic therapy with cefuroxime 500 mg every other day will be utilized. If there are ongoing significant concerns to heal he may follow-up with the wound healing Center. Current Visit: Yes Status: Acute Code(s): E11.621 - TYPE 2 DIABETES MELLITUS WITH FOOT ULCER; L97.522 - NON-PRS CHRONIC ULCER OTH PRT LEFT FOOT W FAT LAYER EXPOSED SNOMED Code(s): 416188999 (3) Diabetes type 2, uncontrolled Current Visit: No Status: Acute Code(s): E11.65 - TYPE 2 DIABETES MELLITUS WITH HYPERGLYCEMIA SNOMED Code(s): 67231497 (4) Chronic renal failure Current Visit: Yes Status: Acute Code(s): N18.9 - CHRONIC KIDNEY DISEASE, UNSPECIFIED SNOMED Code(s): 27511864
[2017-07-01 06:56] LABS: Anisocytosis Slight; CH 32.6; CHCM 30.8; HCT 24.9 % (39.0-53.0); HDW 3.17; HGB 7.3 gm/dL (13.0-17.5); Hypochromasia Moderate; MCH 31.3 pg (25.0-35.0); MCHC 29.3 g/dL (31.0-37.0); MCV 106.7 fL (80.0-100.0); Macrocytosis Moderate; Mean Platelet Volume 9.5; RBC 2.34 m/uL (4.30-5.90)
[2017-07-01 07:13] LABS: Calcium 7.5 mg/dL (8.4-10.2); Phosphorus 5.1 mg/dL (2.5-4.5); Potassium 3.6 mmol/L (3.5-5.1)
[2017-07-01 07:20] LABS: Glucose,Whole Blood 160 mg/dL (75-99)
[2017-07-01] MEDS: INSULIN ASPART 100 UNIT/ML 1 ML 10 ML VIAL SQ SCH ×2 (08:17→12:49)
[2017-07-01] MEDS: LABETALOL 200 MG TAB PO SCH (08:23)
[2017-07-01] MEDS: LEVOTHYROXINE 125 MCG TAB PO SCH (08:23)
[2017-07-01] MEDS: BUMETANIDE 1 MG TAB PO SCH (08:23)
[2017-07-01] MEDS: LISINOPRIL 2.5 MG TAB PO SCH (08:23)
[2017-07-01] MEDS: SENNOSIDES-DOCUSATE SODIUM 1 EACH TAB PO SCH (08:24)
[2017-07-01] MEDS: ASCORBIC ACID 500 MG TAB PO SCH (08:24)
[2017-07-01] MEDS: SEVELAMER 800 MG TAB PO SCH ×2 (08:24→12:49)
[2017-07-01] MEDS: SODIUM BICARBONATE TAB 650 MG TAB PO SCH (08:24)
[2017-07-01] MEDS: ALLOPURINOL 100 MG TAB PO SCH (08:24)
[2017-07-01] MEDS: DULoxetine HCL 30 MG CAPSULE.DR PO SCH (08:24)
[2017-07-01] MEDS: cefTRIAXone IN SWFI 1,000 MG/10 ML SYRINGE IVP SCH (08:31)
[2017-07-01] MEDS: HEPARIN SODIUM,PORCINE 5,000 UNIT/ML 1 ML VIAL SQ SCH (08:33)
[2017-07-01] MEDS: PRAMIPEXOLE 0.25 MG TAB PO SCH (08:37)
[2017-07-01] MEDS: ASPIRIN 325 MG TAB PO SCH (08:37)
[2017-07-01] MEDS: ALBUTEROL NEBULIZED 2.5 MG/3 ML INHALATION SCH ×2 (08:40→12:08)
[2017-07-01] MEDS: IPRATROPIUM 0.5 MG/2.5 ML NEBU INHALATION SCH ×2 (08:40→12:08)
--- NOTE | 2017-07-01 09:08 | P.DS ---
Providers Date of admission: 06/27/17 00:55 Expected date of discharge: 07/01/17 Attending physician: Anup Chirinos Consults: 06/27/17 07:01 Consult Physician Routine Consulting Provider: Ruth Devi Consult Reason/Comments: Chronic Renal Failure; prev. hemodialysis patient Do you want consulting provider notified?: Yes 06/27/17 09:56 Consult Physician Routine Consulting Provider: Gareth Nye Consult Reason/Comments: FOOT WOUND Do you want consulting provider notified?: Yes Primary care physician: Anup Chirinos Hospital Course: This is a 73-year-old gentleman patient of Dr. Chirinos a previous medical history significant for chronic multiple medical problems including hypertension and hypertensive cardiovascular disease, diabetes mellitus type 2 was on insulin pump ( stopped 7 weeks ago ) , diabetic polyneuropathy, diabetic retinopathy, end stage renal disease was on hemodialysis status post right forearm AV fistula, followed by peritoneal dialysis with a CAPD at home which he stopped doing to 1 year ago, history of hyperlipidemia, history of super morbid obesity with obstructive sleep apnea as well as obesity hypoventilation syndrome, patient was last hospitalized in 2013 for a colitis and peritonitis requiring antibiotics. Patient was doing well until one week ago when he started having frequent falls. Patient fell 5 times in the past week. According to the son at bedside , patient stopped dialysis 1 year ago as he lost hope in recovery. According to the patient, he was seen by a western tack assembly line worker who recommended patient going off dialysis for 2 weeks but he did not see the western tack assembly line worker as he moved from [place]. Since then patient has been adamant about not starting dialysis and continuing Lasix and Bumex as outpatient. Patient was initially on hemodialysis but then went on to peritoneal dialysis for 3 years before going off dialysis in September 2014. Patient is making good urine output on the diuretics. Patient had multiple falls during the past week which appears to be mechanical as patient states that he did not lose consciousness. Patient denies dizziness, seizures or balance abnormality. He states he feels heavy in his legs and his left knee just gave away. He also has noticed worsening shortness of breath on exertion with worsening lower extremity edema and nonhealing wound on his left heel since Wednesday. Patient states he did not notice the wound before. He came to the hospital with a creatinine of 6.7(his last outpatient creatinine was 4.55 in December 2016) and a BUN 108. Patient's bicarb was 11, potassium was within normal limits. Hemoglobin 8 and BNP 34, 800. X-ray of the left knee suggested advanced osteoarthritis. X-ray of left foot suggested significant soft tissue swelling in the forefoot but no focal destruction suggesting of osteo-mellitus. Chest x-ray suggestive of cardiomegaly with pulmonary vascularity suggestive of mild heart failure. Echo Was ordered. 06/28: Patient has been seen in consultation by Dr. Nye with recommendations for antibiotics in the form of vancomycin and Rocephin with local wound care of iraj and Jessica to absorb drainage. Bone scan ordered today. Echocardiogram reveals borderline concentric left ventricular hypertrophy, EF 30 -35%, mild mitral regurgitation, tricuspid regurgitation, moderate pulmonary hypertension, left atrium moderately dilated, right ventricle severely enlarged , LV wall motion akinetic. Cardiology has discontinued Norvasc and started him on PHILLIP inhibitor and continued labetalol. Patient is followed by nephrology. He is continued on Lasix 80 mg IV 3 times daily, sodium bicarb. Hemodialysis as scheduled for today. 06/29: Bone scan showed no evidence of osteomyelitis. Patient is to have repeat hemodialysis today. He remains in fluid overload. Wound culture from the left heel is showing gram-negative bacilli. Patient is continued on ceftriaxone and vancomycin. Patient states his breathing is better today. He has a little nonproductive cough. Last BM Wednesday for which stool softener will be added. 06/30: 11.1, BUN 74 and creatinine 5.01. Phosphorus is down to 5.8. He underwent dialysis today as well. He is continued on IV Lasix 80 mg every 8 hours. Antibiotics are Rocephin and vancomycin. Wound culture is Providencia rettgeri susceptible to ceftriaxone. There is also a MSSA. Patient was a 3 person assist to get to the chair. He continues to have some slight wheezing. Patient will be transferred to [facility] floor today. Anticipate discharge to [facility] tomorrow. Nursing to clarify with Dr. Devi if IV Lasix can be changed to oral. 07/01: Dr. Nye is recommending cefuroxime 500 mg every other day. Local wound care with [place], ABD pad if needed and rolled gauze to secure to continue. Dr. Devi has set the patient up for outpatient dialysis with schedule of Wednesday, , Wednesday. Hemoglobin is 7.3, BUN 69 and creatinine 4.53. Phosphorus is down to 5.1. Patient will be discharged to [facility] today under the care of Dr. Dr. Chirinos. Patient is discharged in stable condition. She will be started on glipizide at [facility] for blood sugar control. Discharge diagnoses: # 1volume overload likely secondary to lack of dialysis for chronic kidney disease stage V - Status post hemodialysis today would like to switch to peritoneal dialysis #2 acute hypoxic respiratory failure likely secondary to volume overload and component of acute systolic heart failure #3 cellulitis of the left heel #4 hypertension #5 uncontrolled type 2 diabetes #6 Hypothyroidism #7 restless leg syndrome #8 metabolic acidosis likely secondary to chronic kidney disease #9 gout unspecified #10 depression recurrent Discharge plan: [facility] under the care of Dr. Chirinos on Impression and plan of care have been directed as dictated by the signing physician. Nasreen Ryder nurse practitioner acting as scribe for signing physician. Patient Condition at Discharge: Good Plan - Discharge Summary Discharge Rx Participant: No New Discharge Prescriptions: New Cefuroxime Axetil [Ceftin] 500 mg PO DAILY #7 tab Acetaminophen Tab [Tylenol] 650 mg PO Q6HR PRN tab PRN Reason: Mild Pain Or Fever > 100.5 Albuterol Nebulized [Ventolin Nebulized] 2.5 mg INHALATION RT-TID nebu Aspirin 325 mg PO DAILY tab glipiZIDE [Glucotrol] 2.5 mg PO AC-BRKFST #30 tablet Lisinopril [Zestril] 2.5 mg PO DAILY tab Sennosides-Docusate Sodium [Senokot-S] 2 each PO BID tab Sevelamer [Renvela] 800 mg PO TID-W/MEALS tab Sodium Bicarbonate Tab 650 mg PO TID tab Continue Labetalol [Trandate] 400 mg PO BID DULoxetine HCL [Cymbalta] 30 mg PO DAILY Colchicine [Colcrys] 0.6 mg PO DAILY PRN PRN Reason: gout Bumetanide [BUMEX] 4 mg PO BID Atorvastatin [Lipitor] 40 mg PO HS Pramipexole [Mirapex] 0.25 mg PO DAILY Ergocalciferol [Vitamin D2 (DRISDOL)] 50,000 unit PO MO Ascorbic Acid [Vitamin C] 500 mg PO DAILY Levothyroxine Sodium [Synthroid] 50 mcg PO DAILY Changed Allopurinol [Zyloprim] 50 mg PO DAILY #0 Discontinued amLODIPine [Norvasc] 10 mg PO DAILY #30 tab Aspirin [Aspirin EC] 500 mg PO DAILY PRN PRN Reason: Pain Levothyroxine Sodium [Synthroid] 200 mcg PO DAILY Discharge Medication List Colchicine [Colcrys] 0.6 mg PO DAILY PRN 06/24/14 [History] DULoxetine HCL [Cymbalta] 30 mg PO DAILY 06/24/14 [History] Labetalol [Trandate] 400 mg PO BID 06/24/14 [History] Atorvastatin [Lipitor] 40 mg PO HS 07/30/15 [History] Bumetanide [BUMEX] 4 mg PO BID 07/30/15 [History] Pramipexole [Mirapex] 0.25 mg PO DAILY 07/30/15 [History] Ergocalciferol [Vitamin D2 (DRISDOL)] 50,000 unit PO MO 12/30/15 [History] Ascorbic Acid [Vitamin C] 500 mg PO DAILY 05/13/17 [History] Levothyroxine Sodium [Synthroid] 50 mcg PO DAILY 06/27/17 [History] Acetaminophen Tab [Tylenol] 650 mg PO Q6HR PRN tab 07/01/17 [Rx] Albuterol Nebulized [Ventolin Nebulized] 2.5 mg INHALATION RT-TID nebu [Rx] Allopurinol [Zyloprim] 50 mg PO DAILY #0 07/01/17 [Rx] Aspirin 325 mg PO DAILY tab 07/01/17 [Rx] Cefuroxime Axetil [Ceftin] 500 mg PO DAILY #7 tab 07/01/17 [Rx] Lisinopril [Zestril] 2.5 mg PO DAILY tab 07/01/17 [Rx] Sennosides-Docusate Sodium [Senokot-S] 2 each PO BID tab 07/01/17 [Rx] Sevelamer [Renvela] 800 mg PO TID-W/MEALS tab 07/01/17 [Rx] Sodium Bicarbonate Tab 650 mg PO TID tab 07/01/17 [Rx] glipiZIDE [Glucotrol] 2.5 mg PO AC-BRKFST #30 tablet 07/01/17 [Rx] Follow up Appointment(s)/Referral(s): Anup Chirinos MD [Primary Care Provider] - 1 Week (at [facility] ) Discharge Disposition: TRANSFER TO SNF/ECF
[2017-07-01 10:23] VITALS: BP 117/56; RESP 22; TEMP 97.2
[2017-07-01 12:00] VITALS: BMI 40.7
[2017-07-01 12:08] LABS: Glucose,Whole Blood 200 mg/dL (75-99)
[2017-07-01 12:15] VITALS: PULSE 76
--- NOTE | 2017-07-01 13:11 | P.PN ---
Subjective Patient is seen in follow-up for end-stage renal disease. He underwent hemodialysis yesterday and tolerated the treatment well. He's currently sitting up in chair. Denies any chest pain or shortness of breath. Oral intake is good. Hemodynamically stable. No active complaints at this time. He is scheduled to go to an ECF today. Vital signs are stable. General: The patient appeared well nourished and normally developed. HEENT: Head exam is unremarkable. Neck is without jugular venous distension. LUNGS: Lungs are clear to auscultation and percussion. Breath sounds decreased. HEART: Rate and Rhythm are regular. First and second heart sounds normal. No murmurs, rubs or gallops. ABDOMEN: Abdominal exam reveals normal bowel sounds. Non-tender and non- distended. No evidence of peritonitis. EXTREMITIES: 2+ edema. Chronic skin changes noted. Objective - Vital Signs Vital signs: Vital Signs Temp 97.2 F L 07/01/17 08:00 Pulse 76 07/01/17 12:23 Resp 22 07/01/17 08:00 BP 117/56 07/01/17 08:00 Pulse Ox 93 L 07/01/17 08:00 Intake & Output 06/30/17 07/01/17 07/01/17 18:59 06:59 18:59 Intake Total 598 0 Output Total 101 700 Balance 598 -101 -700 Weight 143.9 kg 143.9 kg Intake: Oral 598 0 Output: Urine 100 Stool 700 Urine/Stool Mix 1 Other: Voiding Method Urinal Urinal Urinal # Voids 1 - Labs CBC & Chem 7: 07/01/17 06:42 07/01/17 06:42 Labs: Abnormal Lab Results - Last 24 Hours (Table) 06/30/17 06/30/17 07/01/17 Range/Units 16:57 20:52 06:42 RBC 2.34 L (4.30-5.90) m/uL Hgb 7.3 L (13.0-17.5) gm/dL Hct 24.9 L (39.0-53.0) % MCV 106.7 H (80.0-100.0) fL MCHC 29.3 L (31.0-37.0) g/dL RDW 16.0 H (11.5-15.5) % Plt Count 134 L (150-450) k/uL Carbon Dioxide (22-30) mmol/L BUN (9-20) mg/dL Creatinine (0.66-1.25) mg/dL Glucose (74-99) mg/dL POC Glucose (mg/dL) 166 H 179 H (75-99) mg/dL Calcium (8.4-10.2) mg/dL Phosphorus (2.5-4.5) mg/dL 07/01/17 07/01/17 07/01/17 Range/Units 06:42 07:17 12:04 RBC (4.30-5.90) m/uL Hgb (13.0-17.5) gm/dL Hct (39.0-53.0) % MCV (80.0-100.0) fL MCHC (31.0-37.0) g/dL RDW (11.5-15.5) % Plt Count (150-450) k/uL Carbon Dioxide 20 L (22-30) mmol/L BUN 69 H (9-20) mg/dL Creatinine 4.53 H (0.66-1.25) mg/dL Glucose 151 H (74-99) mg/dL POC Glucose (mg/dL) 160 H 200 H (75-99) mg/dL Calcium 7.5 L (8.4-10.2) mg/dL Phosphorus 5.1 H (2.5-4.5) mg/dL Microbiology - Last 24 Hours (Table) 06/26/17 23:07 Blood Culture - Preliminary Blood No Growth after 96 hours 06/27/17 13:30 Gram Stain - Final Heel - Left Wound Culture - Final Providencia rettgeri Staphylococcus aureus Assessment and Plan Plan: Assessment: #1. End-stage renal disease maintained on hemodialysis via AV fistula. #2. Anemia of chronic kidney disease maintained on Aranesp. #3. Fluid overload. Improved with ultrafiltration. #4. Left knee wound maintained on antibiotics. Plan: Stable to be discharged to [facility] from nephrology standpoint. He will receive dialysis treatment tomorrow at his outpatient center and then will be maintained on a Wednesday schedule as an outpatient.
--- NOTE | 2017-07-01 23:33 | P.PN ---
Subjective Progress Note Date: 07/01/17 Principal diagnosis: Sepsis 76-year-old male presents to the emergency center with increasing weakness and a history of recent multiple falls. The patient's son who was present is very helpful to provide some accurate details of the recent history. The patient is unable to accurately give details. However is clear that he stop dialysis over a year ago and did not want to restart it. Usually said that he stopped it about 8 weeks ago which point in time he also stopped his insulin pump. The patient's son who is an EMS worker relates that he did stop his insulin pump within the last several weeks but stopped his dialysis, which was CAPD more than a year ago. The patient has been somewhat adamant about not want to restart dialysis of any type. Over the last week the patient has had increasing weakness. EMS was called and multiple events to pick patient up from the floor. He never any significant trauma and refused to go to the ER until the current event. At this time he has evidence of significant uremia generalized weakness and some confusion. Infectious disease consult was requested given the significant new ulceration has been noted to his left heel. As the patient has had multiple falls in they're unclear how the ulcer started. The patient relates that it's not painful. He does have neuropathy and has a history of an ulcer in the past. He has a fistula in the right wrist unclear if it is adequate for hemodialysis. The son believes a PermCath was utilized for his last type of hemodialysis and then he was on CAPD until he discontinued dialysis. It is not related that he was having fevers chills or rigors at home. Just found and increasing weakness and multiple falls. The patient has multiple bruises from his falls none of them are tender. Son relates that the patient does have urinary output and they're unaware of any significant changes except of some recent incontinence. Patient has agreed and is now receiving dialysis with hemodialysis. Seems to be tolerating this well so far. Feeling somewhat better today. Will be going to rehab at discharge. The bone scan is negative for osteomyelitis. Objective - Vital Signs Vital signs: Vital Signs Temp 97.2 F L 07/01/17 08:00 Pulse 76 07/01/17 12:23 Resp 22 07/01/17 08:00 BP 117/56 07/01/17 08:00 Pulse Ox 93 L 07/01/17 08:00 Intake & Output 07/01/17 07/01/17 07/02/17 06:59 18:59 06:59 Intake Total 0 Output Total 101 700 Balance -101 -700 Weight 143.9 kg 143.9 kg Intake: Oral 0 Output: Urine 100 Stool 700 Urine/Stool Mix 1 Other: Voiding Method Urinal Urinal # Voids 1 - Exam 76-year-old male who is 6 foot 2 but still has significant obesity is pleasant and cooperative but has very poor recall HEENT: Anicteric conjunctiva are pink and moist nasal mucosa grossly intact without significant lesions, there is no thrush. Neck: The neck is supple without significant lymphadenopathy or thyromegaly. Lungs: There is symmetrical air entry with basilar crackles are heard no bronchial sounds Heart: Irregular with an audible S1 and S2 without S4 no distinct murmur click or rub Abdomen: Obese Positive bowel sounds soft and nontender without palpable masses or organomegaly. There was no guarding or rebound. Extremities: The upper extremity shows the IV site is intact. There is evidence of some ecchymosis on the upper extremities. Especially to the left shoulder. The lower extremities have evidence of the extensive bilateral lower extremity edema. There is ulceration to the left heel which is full-thickness with fat layer exposed no bony structures involved. Serous drainage is noted. There is a lot of necrotic material in this is debrided with scissors and forceps through the subcutaneous tissue. Minimal bleeding was easily controlled Pseudomonas and gauze and light pressure medical any dressing is applied. Tolerated it well. Neuro: Awake alert oriented to person and place, poor historian, able to move upper and lower extremities, decreased sensation from ankle distally bilaterally no tenderness at the ulcer site. - Labs CBC & Chem 7: 07/01/17 06:42 07/01/17 06:42 Labs: Abnormal Lab Results - Last 24 Hours (Table) 07/01/17 07/01/17 07/01/17 Range/Units 06:42 06:42 07:17 RBC 2.34 L (4.30-5.90) m/uL Hgb 7.3 L (13.0-17.5) gm/dL Hct 24.9 L (39.0-53.0) % MCV 106.7 H (80.0-100.0) fL MCHC 29.3 L (31.0-37.0) g/dL RDW 16.0 H (11.5-15.5) % Plt Count 134 L (150-450) k/uL Carbon Dioxide 20 L (22-30) mmol/L BUN 69 H (9-20) mg/dL Creatinine 4.53 H (0.66-1.25) mg/dL Glucose 151 H (74-99) mg/dL POC Glucose (mg/dL) 160 H (75-99) mg/dL Calcium 7.5 L (8.4-10.2) mg/dL Phosphorus 5.1 H (2.5-4.5) mg/dL 07/01/17 Range/Units 12:04 RBC (4.30-5.90) m/uL Hgb (13.0-17.5) gm/dL Hct (39.0-53.0) % MCV (80.0-100.0) fL MCHC (31.0-37.0) g/dL RDW (11.5-15.5) % Plt Count (150-450) k/uL Carbon Dioxide (22-30) mmol/L BUN (9-20) mg/dL Creatinine (0.66-1.25) mg/dL Glucose (74-99) mg/dL POC Glucose (mg/dL) 200 H (75-99) mg/dL Calcium (8.4-10.2) mg/dL Phosphorus (2.5-4.5) mg/dL Microbiology - Last 24 Hours (Table) 06/26/17 23:07 Blood Culture - Preliminary Blood No Growth after 96 hours Laboratory Results WBC 5.0 k/uL (3.8-10.6) 07/01/17 06:42 RBC 2.34 m/uL (4.30-5.90) L 07/01/17 06:42 Hgb 7.3 gm/dL (13.0-17.5) L 07/01/17 06:42 Hct 24.9 % (39.0-53.0) L 07/01/17 06:42 MCV 106.7 fL (80.0-100.0) H 07/01/17 06:42 MCH 31.3 pg (25.0-35.0) 07/01/17 06:42 MCHC 29.3 g/dL (31.0-37.0) L 07/01/17 06:42 RDW 16.0 % (11.5-15.5) H 07/01/17 06:42 Plt Count 134 k/uL (150-450) L 07/01/17 06:42 Neutrophils % 80 % 06/26/17 23:07 Lymphocytes % 5 % 06/26/17 23:07 Monocytes % 7 % 06/26/17 23:07 Eosinophils % 6 % 06/26/17 23:07 Basophils % 1 % 06/26/17 23:07 Neutrophils # 3.8 k/uL (1.3-7.7) 06/26/17 23:07 Lymphocytes # 0.3 k/uL (1.0-4.8) L 06/26/17 23:07 Monocytes # 0.3 k/uL (0-1.0) 06/26/17 23:07 Eosinophils # 0.3 k/uL (0-0.7) 06/26/17 23:07 Basophils # 0.0 k/uL (0-0.2) 06/26/17 23:07 Hypochromasia Moderate 07/01/17 06:42 Anisocytosis Slight 07/01/17 06:42 Macrocytosis Moderate 07/01/17 06:42 PT 12.1 sec (9.0-12.0) H 06/26/17 23:07 INR 1.2 (<1.2) H 06/26/17 23:07 APTT 26.5 sec (22.0-30.0) 06/26/17 23:07 Sodium 140 mmol/L (137-145) 07/01/17 06:42 Potassium 3.6 mmol/L (3.5-5.1) 07/01/17 06:42 Chloride 107 mmol/L (98-107) 07/01/17 06:42 Carbon Dioxide 20 mmol/L (22-30) L 07/01/17 06:42 Anion Gap 13 mmol/L 07/01/17 06:42 BUN 69 mg/dL (9-20) H 07/01/17 06:42 Creatinine 4.53 mg/dL (0.66-1.25) H 07/01/17 06:42 Est GFR (MDRD) Af Amer 15 (>60 ml/min/1.73 sqM) 07/01/17 06:42 Est GFR (MDRD) Non-Af 13 (>60 ml/min/1.73 sqM) 07/01/17 06:42 Glucose 151 mg/dL (74-99) H 07/01/17 06:42 POC Glucose (mg/dL) 200 mg/dL (75-99) H 07/01/17 12:04 POC Glu [employer] Angi Brown 07/01/17 12:[address] Glu mg/dL 160 06/28/17 02:00 Hemoglobin A1c 7.2 % (4.0-6.0) H 06/28/17 02:00 Plasma Lactic Acid Levi 1.3 mmol/L (0.7-2.0) 06/26/17 23:07 Calcium 7.5 mg/dL (8.4-10.2) L 07/01/17 06:42 Phosphorus 5.1 mg/dL (2.5-4.5) H 07/01/17 06:42 Iron 45 ug/dL (65-175) L 06/28/17 05:44 TIBC 198 ug/dL (228-460) L 06/28/17 05:44 Iron Saturation 22.73 (15.00-50.00) 06/28/17 05:44 Ferritin 825.9 ng/mL (22.0-322.0) H 06/28/17 05:44 Total Bilirubin 0.2 mg/dL (0.2-1.3) 06/26/17 23:07 AST 18 U/L (17-59) 06/26/17 23:07 ALT 36 U/L (21-72) 06/26/17 23:07 Alkaline Phosphatase 88 U/L (38-126) 06/26/17 23:07 Troponin I 0.078 ng/mL (0.000-0.034) H* 06/28/17 01:54 NT-Pro-B Natriuret Pep 94932 pg/mL 06/26/17 23:07 Total Protein 6.0 g/dL (6.3-8.2) L 06/26/17 23:07 Albumin 3.3 g/dL (3.5-5.0) L 06/26/17 23:07 PTH Intact 314.9 pg/mL (14.0-72.0) H 06/28/17 05:44 Urine Color Yellow 06/29/17 15:15 Urine Appearance Turbid (Clear) 06/29/17 15:15 Urine pH 5.5 (5.0-8.0) 06/29/17 15:15 Ur Specific [place] 1.010 (1.001-1.035) 06/29/17 15:15 Urine Protein 2+ (Negative) H 06/29/17 15:15 Urine Glucose (UA) Negative (Negative) 06/29/17 15:15 Urine Ketones Negative (Negative) 06/29/17 15:15 Urine Blood Moderate (Negative) H 06/29/17 15:15 Urine Nitrite Negative (Negative) 06/29/17 15:15 Urine Bilirubin Negative (Negative) 06/29/17 15:15 Urine Urobilinogen <2.0 mg/dL (<2.0) 06/29/17 15:15 Ur Leukocyte Esterase Negative (Negative) 06/29/17 15:15 Urine RBC 22 /hpf (0-5) H 06/29/17 15:15 Ur Squamous Epith Cells 1 /hpf (0-4) 06/29/17 15:15 Uric Acid Crystals Many /hpf (None) H 06/29/17 15:15 Urine Bacteria Few /hpf (None) H 06/29/17 15:15 Hyaline Casts 1 /lpf (0-2) 06/29/17 15:15 Urine Mucus Rare /hpf (None) H 06/29/17 15:15 Random Vancomycin 20.9 ug/mL 06/29/17 06:11 Hep Bs Antigen Non-Reactive (Non-Reactive) 06/28/17 05:44 Hep Bs Antibody Equivocal (Non-Reactive) H 06/28/17 05:44 Hep Bs Antibody, Quant 10.6 mIU/mL 06/28/17 05:44 Microbiology 06/26/17 23:07 Blood Blood Culture - Preliminary No Growth after 96 hours 06/27/17 13:30 Heel - Left Gram Stain - Final 06/27/17 13:30 Heel - Left Wound Culture - Final Providencia rettgeri Staphylococcus aureus Assessment and Plan (1) Acute exacerbation of CHF (congestive heart failure) Status: Acute Code(s): I50.9 - HEART FAILURE, UNSPECIFIED SNOMED Code(s): 67105384 (2) 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 The patient has had progressive decline of his status especially the last short period of time. The patient discontinued his insulin pump. He now has uncontrolled diabetes. He has marked worsening of his renal failure and has evidence of uremia with increasing weakness and multiple falls. The patient's family is present and are aware of the situation. The patient has now agreed to hemodialysis which has been started. He certainly feels somewhat better. Heart failure is being treated. The ulcer will be treated with antibiotic therapy including vancomycin and Rocephin is added for gram-negative coverage. The patient does have a penicillin ALLERGY of undetermined significance. Wound cultures obtained which will further help direct antimicrobial therapy. Local wound care has been requested with medical honey and ABDs to absorb the somewhat copious drainage. Depending on the plan will determine if he needs an extensive debridement. X-ray has failed reveal evidence of underlying bony infection. Bone scan does not reveal evidence of osteomyelitis Otherwise agreed to hemodialysis and further aggressive therapy will continue current workup. Protein supplementation and vitamin is given. The wound culture is now finalized. [employer] and MSSA have been isolated. Vancomycin is discontinued. He is following with nephrology and likely will be ready for transfer soon. Oral antibiotic therapy with cefuroxime 500 mg every other day is utilized. If there are ongoing significant concerns to heal he may follow-up with the wound healing Center. Status: Acute Code(s): E11.621 - TYPE 2 DIABETES MELLITUS WITH FOOT ULCER; L97.522 - NON-PRS CHRONIC ULCER OTH PRT LEFT FOOT W FAT LAYER EXPOSED SNOMED Code(s): 784600394 (3) Diabetes type 2, uncontrolled Status: Acute Code(s): E11.65 - TYPE 2 DIABETES MELLITUS WITH HYPERGLYCEMIA SNOMED Code(s): 87677216 (4) Chronic renal failure Status: Acute Code(s): N18.9 - CHRONIC KIDNEY DISEASE, UNSPECIFIED SNOMED Code(s): 64116802
== END 2017-07-01 14:40 | DRG 291 ==
LOC: EC 22:56 → 6SEL 06-27 00:55 → 3SUR 06-30 21:35
PROVIDERS: ADMIT Internal Medicine; ATTEND Internal Medicine
PROC: 5A1D70Z Performance of Urinary Filtration, Intermittent, Less than 6 Hours Per Day (ICD-10-PCS; principal; 2017-06-29)
DX: I13.2 Hypertensive heart and chronic kidney disease with heart failure and with stage 5 chronic kidney disease, or end stage renal disease (principal); I50.21 Acute systolic (congestive) heart failure; J96.01 Acute respiratory failure with hypoxia; E87.2 Acidosis; I27.20 Pulmonary hypertension, unspecified; E11.21 Type 2 diabetes mellitus with diabetic nephropathy; E66.2 Morbid (severe) obesity with alveolar hypoventilation; N18.6 End stage renal disease; L03.116 Cellulitis of left lower limb; L97.422 Non-pressure chronic ulcer of left heel and midfoot with fat layer exposed; Z68.41 Body mass index [BMI] 40.0-44.9, adult; E11.42 Type 2 diabetes mellitus with diabetic polyneuropathy; E11.621 Type 2 diabetes mellitus with foot ulcer; E11.22 Type 2 diabetes mellitus with diabetic chronic kidney disease; E11.65 Type 2 diabetes mellitus with hyperglycemia; J44.9 Chronic obstructive pulmonary disease, unspecified; E11.319 Type 2 diabetes mellitus with unspecified diabetic retinopathy without macular edema; I08.1 Rheumatic disorders of both mitral and tricuspid valves; D63.1 Anemia in chronic kidney disease; Z99.2 Dependence on renal dialysis; M89.9 Disorder of bone, unspecified; I25.10 Atherosclerotic heart disease of native coronary artery without angina pectoris; N39.498 Other specified urinary incontinence; N40.1 Benign prostatic hyperplasia with lower urinary tract symptoms; S20.229A Contusion of unspecified back wall of thorax, initial encounter; E78.5 Hyperlipidemia, unspecified; G47.33 Obstructive sleep apnea (adult) (pediatric); R29.6 Repeated falls; M10.9 Gout, unspecified; E03.9 Hypothyroidism, unspecified; M19.91 Primary osteoarthritis, unspecified site; G25.81 Restless legs syndrome; F32.9 Major depressive disorder, single episode, unspecified; Z79.82 Long term (current) use of aspirin; Z79.899 Other long term (current) drug therapy; Z96.60 Presence of unspecified orthopedic joint implant; Z88.1 Allergy status to other antibiotic agents; Z88.0 Allergy status to penicillin; Z88.2 Allergy status to sulfonamides
CPT/HCPCS: 36415; 71010; 78315; 80048; 80053; 80202; 81001; 82728; 83036; 83540; 83550; 83605; 83880; 83970; 84100; 84484; 85025; 85027; 85610; 85730; 86706; 87040; 87070; 87077; 87186; 87205; 87340; 90935; 93306; 94640; 96365; 96372; 96375; 99285